=== PATIENT | male | born 1930 | race Hispanic/Latino ===

== ENCOUNTER 2017-06-17 06:35 | Emergency (ER) | payer MEDICARE ==
--- NOTE | 2017-06-17 08:48 | Cat Scan Report ---
CT HEAD WITHOUT CONTRAST: HISTORY: Fall, no appropriate clinical history provided. TECHNIQUE: Sequential CT images without contrast. FINDINGS: Images obtained show bilateral prominence of the sulci and ventricles. There are no abnormal intra- or extra-axial blood or fluid collections. There are no focal masses or evidence of mass effect. The brown white matter differentiation appears within normal limits. Regions of periventricular decreased attenuation are consistent with microangiopathic ischemic disease. The posterior fossa structures including the fourth ventricle, cerebellum, and brainstem appear normal. Severe mucosal thickening is noted throughout all paranasal sinuses. The mastoid air cells are clear. Previous endoscopic sinus surgery changes are suspected. IMPRESSION: Evidence of atrophy and microangiopathic ischemic disease. No acute intracranial process noted. Chronic sinusitis.
--- NOTE | 2017-06-17 08:50 | Cat Scan Report ---
CT SCAN OF THE CERVICAL SPINE: HISTORY: Fall, no additional appropriate clinical history provided. TECHNIQUE: Contiguous 1.25 mm axial images of the cervical spine were obtained. Sagittal and coronal reformatted images. FINDINGS: Osteopenia is evident. Severe degenerative disc disease and facet arthropathy are identified at all levels. Multilevel neural foraminal narrowing is suspected. No displaced fracture, subluxation or bone lesion is appreciated. The dens is intact. The prevertebral soft tissues are normal thickness. IMPRESSION: Osteopenia. Severe multilevel degenerative change. No acute injury is appreciated.
[2017-06-17] MEDS ORDERED: NACL 0.9% 500 ML IR ONE (10:07)
[2017-06-17] MEDS ORDERED: XYLOCAINE 1% 20 mL ONE (10:32)
--- NOTE | 2017-06-17 10:32 | Emergency Department Report ---
HPI - General Chief Complaint: Wound/Laceration Time Seen by Provider: 06/17/17 10:23 - HPI HPI: Room 26 The patient is an 87-year-old male presented with a chief complaint of fall. The patient states this morning at 05:0 after getting out of bed and attempting to pull up his pants he lost his balance and fell forward striking his face on an unknown object. Patient did not lose consciousness but activated his medic alert system. Patient currently only complains of chronic pain from his arthritis but otherwise states he feels fine. Location: Head Duration: [See above] Quality: Currently pain-free Severity: 0/10 Modifying factors: [see above] Context: [see above] Mode of transportation: [not driving] ED Past Medical Hx - Past Medical History Previous Medical History?: Yes Hx Hypertension: Yes Hx Congestive Heart Failure: Yes Additional medical history: hyperlipidemia - Surgical History Past Surgical History?: No Hx Open Heart Surgery: Yes Additional Surgical History: Cardiac valve replacement (family uncertain which valve), AICD, back surgery - Family History Family history: no significant - Social History Smoking Status: Former Smoker (none 40 years) Substance Use Type: Alcohol (rarely) - Medications Home Medications: Home Medications Medication Instructions Recorded Confirmed Last Taken Type Aspirin 81 mg PO DAILY 06/17/17 06/17/17 Unknown History Clopidogrel Bisulfate [Plavix] 75 mg PO DAILY 06/17/17 06/17/17 Unknown History Famotidine 40 mg PO DAILY 06/17/17 06/17/17 06/16/17 History Furosemide [Lasix TAB] 40 mg PO DAILY 06/17/17 06/17/17 Unknown History Gabapentin [Neurontin] 300 mg PO Q8HR 06/17/17 06/17/17 06/16/17 History HYDROcodone/APAP 10-325 [[place] 10 mg PO PRN 06/17/17 06/17/17 06/16/17 History 10-325 mg TAB] Lisinopril [Prinivil] 10 mg PO DAILY 06/17/17 06/17/17 Unknown History Meloxicam 15 mg PO PRN 06/17/17 06/17/17 Unknown History Metoprolol [Lopressor TAB] 25 mg PO DAILY 06/17/17 06/17/17 Unknown History Simvastatin 20 mg PO HS 06/17/17 06/17/17 Unknown History Spironolactone-Hctz 25-25 Tab 25 mg PO DAILY 06/17/17 06/17/17 06/16/17 History traMADol [Ultram] 50 mg PO Q6HR PRN #10 tablet 06/17/17 Unknown Rx ED Review of Systems ROS: Stated complaint: FALL/HEAD LACERATION Other details as noted in HPI Musculoskeletal: back pain, myalgia Skin: other (facial laceration) Neurological: denies: headache Physical Exam - Physical Exam Vital Signs: Vital Signs 06/17/17 06/17/17 06/17/17 06:42 07:34 07:45 Temperature 97.5 F L Pulse Rate 60 61 62 Respiratory 16 19 Rate Blood Pressure 124/61 166/100 O2 Sat by Pulse 96 96 95 Oximetry Physical Exam: GENERAL: The patient is well-developed well-nourished male sitting on stretcher not appear to be in acute distress. Strep blood to the face HEENT: Normocephalic. There is an approximately 3 cm laceration to the mid forehead. Extraocular motions are intact. Patient has moist mucous membranes. NECK: Supple. Trachea midline CHEST/LUNGS: There is no respiratory distress noted. SKIN: There is an approximately 3 cm laceration to the mid forehead with surrounding ecchymosis. There is approximately 1 cm laceration above the upper lip. There is no rash. There is no edema. There is no diaphoresis. NEURO: The patient is awake, alert, and oriented. The patient is cooperative. The patient has normal speech MUSCULOSKELETAL: There is no limited range of motion ED Course Vital Signs 06/17/17 06/17/17 06/17/17 06:42 07:34 07:45 Temperature 97.5 F L Pulse Rate 60 61 62 Respiratory 16 19 Rate Blood Pressure 124/61 166/100 O2 Sat by Pulse 96 96 95 Oximetry - Laceration /Wound Repair Upper Face Wound Location: face Wound Length (cm): 4 Wound's Depth, Shape: superficial Wound Explored: no foreign body removed Betadine Prep?: Yes Anesthesia: 1% Lidocaine, 0.5% Sensorcaine Volume Anesthetic (ccs): 6 Wound Repaired With: sutures Suture Size/Type: 5:0, nylon Number of Sutures: 8 Layer Closure?: No Sterile Dressing Applied?: Yes ED Medical Decision Making - Radiology Data Radiology results: report reviewed (CT head, CT cervical spine), image reviewed (CT head, CT cervical spine) CT HEAD WITHOUT CONTRAST: HISTORY: Fall, no appropriate clinical history provided. TECHNIQUE: Sequential CT images without contrast. FINDINGS: Images obtained show bilateral prominence of the sulci and ventricles. There are no abnormal intra- or extra-axial blood or fluid collections. There are no focal masses or evidence of mass effect. The brown white matter differentiation appears within normal limits. Regions of periventricular decreased attenuation are consistent with microangiopathic ischemic disease. The posterior fossa structures including the fourth ventricle, cerebellum, and brainstem appear normal. Severe mucosal thickening is noted throughout all paranasal sinuses. The mastoid air cells are clear. Previous endoscopic sinus surgery changes are suspected. IMPRESSION: Evidence of atrophy and microangiopathic ischemic disease. No acute intracranial process noted. Chronic sinusitis. Transcribed By: TTR Dictated By: VIVEK SWARTZ JR, MD Electronically Authenticated By: VIVEK SWARTZ JR, MD Signed Date/Time: 06/17/17843 DD/ 2 TD/TT: 06/17/17843 CT SCAN OF THE CERVICAL SPINE: HISTORY: Fall, no additional appropriate clinical history provided. TECHNIQUE: Contiguous 1.25 mm axial images of the cervical spine were obtained. Sagittal and coronal reformatted images. FINDINGS: Osteopenia is evident. Severe degenerative disc disease and facet arthropathy are identified at all levels. Multilevel neural foraminal narrowing is suspected. No displaced fracture, subluxation or bone lesion is appreciated. The dens is intact. The prevertebral soft tissues are normal thickness. IMPRESSION: Osteopenia. Severe multilevel degenerative change. No acute injury is appreciated. Transcribed By: TTR Dictated By: VIVEK SWARTZ JR, MD Electronically Authenticated By: VIVEK SWARTZ JR, MD Signed Date/Time: 06/17/17844 DD/ 3 TD/TT: 06/17/17844 - Differential Diagnosis ICH, closed head injury, facial laceration, cervical fracture Critical care attestation.: If time is entered above; I have spent that time in minutes in the direct care of this critically ill patient, excluding procedure time. ED Disposition Clinical Impression: Facial laceration, Closed head injury Disposition: DC- TO HOME OR SELFCARE Is pt being admited?: No Does the pt Need Aspirin: No Condition: Stable Instructions: Suture Care (ED), Laceration (ED), Minor Head Injury (ED) Additional Instructions: Your sutures need to stay in place for 3-5 days. After that you may return to the emergency department or follow-up with your primary physician to have them removed. Return to the emergency department immediately should you develop worsening symptoms, fever, inability to tolerate food or liquid or any other concerns. Prescriptions: traMADol [Ultram] 50 mg PO Q6HR PRN #10 tablet PRN Reason: Pain Referrals: PRIMARY CARE, [Primary Care Provider] - 3-5 Days Time of Disposition: 11:05
[2017-06-17 10:34] VITALS: BP 167/76
[2017-06-17] MEDS ORDERED: MARCAINE 0.25% INFILTRATI ONE (10:35)
[2017-06-17] MEDS ORDERED: TRIPLE ANTIBIOTIC TP ONE (11:06)
[2017-06-17] MEDS ORDERED: ANTIBIOTIC OINT TP ONE (11:30)
== END 2017-06-17 12:34 | disposition home or self-care (01) ==
LOC: ED 06:35
DX: S01.81XA Laceration without foreign body of other part of head, initial encounter (principal); I11.0 Hypertensive heart disease with heart failure; I50.9 Heart failure, unspecified; E78.5 Hyperlipidemia, unspecified; Z95.810 Presence of automatic (implantable) cardiac defibrillator; Z87.891 Personal history of nicotine dependence; M19.90 Unspecified osteoarthritis, unspecified site; W18.00XA Striking against unspecified object with subsequent fall, initial encounter; Y93.89 Activity, other specified; Y99.8 Other external cause status; Y92.89 Other specified places as the place of occurrence of the external cause
CPT/HCPCS: 70450; 72125; A6250

== ENCOUNTER 2017-06-21 12:00 | Emergency (ER) | payer MEDICARE ==
[2017-06-21 12:20] VITALS: BP 157/64
--- NOTE | 2017-06-21 12:24 | Emergency Department Report ---
ED Recheck HPI - General Chief Complaint: Laceration/Recheck/Suture Stated Complaint: SUTURE REMOVAL Time Seen by Provider: 06/21/17 12:23 Source: patient Mode of arrival: Wheelchair Limitations: No Limitations - History of Present Illness Initial Comments: Family member brought patient in for suture removal to facial area. Patient had suture placed to right forehead and right mustache area. This is placed on 06/17/2017. Patient denies any pain or drainage from site. He said he is here because he was told to return in [address] Valdes to have sutures removed. Patient did not follow-up per her son with his primary care doctor. He did not get a tetanus vaccine when he was here so he'll get 1 prior to discharge. He denies any redness or swelling to suture sites. No complaints today. MD Complaint: suture/staple removal Onset/Timin -: days(s) Initial Visit For: laceration Returns Today for: staple/Stitch removal Symptoms Since Prior Visit: no new symptoms Context: planned re-check Associated Symptoms: none Treatments Prior to Arrival: Given Pain Meds on - Related Data Home Medications Medication Instructions Recorded Confirmed Last Taken Aspirin 81 mg PO DAILY 06/17/17 06/17/17 Unknown Clopidogrel Bisulfate [Plavix] 75 mg PO DAILY 06/17/17 06/17/17 Unknown Famotidine 40 mg PO DAILY 06/17/17 06/17/17 06/16/17 Furosemide [Lasix TAB] 40 mg PO DAILY 06/17/17 06/17/17 Unknown Gabapentin [Neurontin] 300 mg PO Q8HR 06/17/17 06/17/17 06/16/17 HYDROcodone/APAP 10-325 [[place] 10 mg PO PRN 06/17/17 06/17/17 06/16/17 10-325 mg TAB] Lisinopril [Prinivil] 10 mg PO DAILY 06/17/17 06/17/17 Unknown Meloxicam 15 mg PO PRN 06/17/17 06/17/17 Unknown Metoprolol [Lopressor TAB] 25 mg PO DAILY 06/17/17 06/17/17 Unknown Simvastatin 20 mg PO HS 06/17/17 06/17/17 Unknown Spironolactone-Hctz 25-25 Tab 25 mg PO DAILY 06/17/17 06/17/17 06/16/17 Previous Rx's Medication Instructions Recorded Last Taken Type traMADol [Ultram] 50 mg PO Q6HR PRN #10 tablet 06/17/17 Unknown Rx Allergies Allergy/AdvReac Type Severity Reaction Status Date / Time No Known Allergies Allergy Unverified 06/17/17 07:47 ED Review of Systems ROS: Stated complaint: SUTURE REMOVAL Other details as noted in HPI Comment: All other systems reviewed and negative Constitutional: no symptoms reported Respiratory: no symptoms reported Cardiovascular: denies: chest pain, palpitations, dyspnea on exertion, edema, syncope, paroxysmal nocturnal dyspnea Gastrointestinal: denies: abdominal pain, nausea, vomiting, diarrhea Musculoskeletal: denies: back pain, arthralgia, myalgia Skin: other (lacerations 2 to face. Suture removal.) Neurological: denies: headache, weakness, numbness, paresthesias, confusion, abnormal gait, vertigo ED Past Medical Hx - Past Medical History Previous Medical History?: Yes Hx Hypertension: Yes Hx Congestive Heart Failure: Yes Additional medical history: hyperlipidemia - Surgical History Past Surgical History?: Yes Hx Open Heart Surgery: Yes Additional Surgical History: Cardiac valve replacement (family uncertain which valve), AICD, back surgery - Family History Family history: hypertension - Social History Smoking Status: Never Smoker Substance Use Type: None - Medications Home Medications: Home Medications Medication Instructions Recorded Confirmed Last Taken Type Aspirin 81 mg PO DAILY 06/17/17 06/17/17 Unknown History Clopidogrel Bisulfate [Plavix] 75 mg PO DAILY 06/17/17 06/17/17 Unknown History Famotidine 40 mg PO DAILY 06/17/17 06/17/17 06/16/17 History Furosemide [Lasix TAB] 40 mg PO DAILY 06/17/17 06/17/17 Unknown History Gabapentin [Neurontin] 300 mg PO Q8HR 06/17/17 06/17/17 06/16/17 History HYDROcodone/APAP 10-325 [[place] 10 mg PO PRN 06/17/17 06/17/17 06/16/17 History 10-325 mg TAB] Lisinopril [Prinivil] 10 mg PO DAILY 06/17/17 06/17/17 Unknown History Meloxicam 15 mg PO PRN 06/17/17 06/17/17 Unknown History Metoprolol [Lopressor TAB] 25 mg PO DAILY 06/17/17 06/17/17 Unknown History Simvastatin 20 mg PO HS 06/17/17 06/17/17 Unknown History Spironolactone-Hctz 25-25 Tab 25 mg PO DAILY 06/17/17 06/17/17 06/16/17 History traMADol [Ultram] 50 mg PO Q6HR PRN #10 tablet 06/17/17 Unknown Rx ED Physical Exam - General Limitations: No Limitations General appearance: alert, in no apparent distress - Head Head exam: Present: atraumatic, normocephalic, normal inspection - Eye Eye exam: Present: normal appearance, PERRL, EOMI Pupils: Present: normal accommodation - ENT ENT exam: Present: other (patient has facial ecchymotic area from trauma sustained during fall 4 days ago.) - Neck Neck exam: Present: normal inspection, full ROM. Absent: tenderness, meningismus - Respiratory Respiratory exam: Present: normal lung sounds bilaterally. Absent: respiratory distress, chest wall tenderness - Cardiovascular Cardiovascular Exam: Present: regular rate, normal rhythm, normal heart sounds - Extremities Exam Extremities exam: Present: normal inspection, full ROM, normal capillary refill , other (clubbing, cyanosis or edema. +2 pulses to all extremities. No neurovascular compromise). Absent: tenderness, pedal edema, joint swelling, calf tenderness - Neurological Exam Neurological exam: Present: alert, oriented X3 - Psychiatric Psychiatric exam: Present: normal affect, normal mood - Skin Skin exam: Present: warm, dry, ecchymosis (multiple bruises ecchymotic area to facefrom fall 4 days ago. Patient also has 2 laceration with stitches In place. Laceration are well approximated. No redness or drainage. Wound edges are healed.) - Expanded Skin Exam Expanded Type of lesion: Present: laceration ( mustache area and forehead) Distribution of rash: face Description of rash: Absent: tenderness, erythematous, swelling, discharge ED Course Vital Signs 06/21/17 12:16 Temperature 98 F Pulse Rate 65 Respiratory 89 H Rate Blood Pressure 157/64 O2 Sat by Pulse 95 Oximetry - Reevaluation(s) Reevaluation #1: 06/21/17 13:17 Stitches removed from laceration site to the facial area. 5 stitches removed from forehead and 3 stitches removed from right mustache area. Wound is well approximated, no signs of infection. No drainage noted no erythema and nontender to palpate. Patient given Boostrix vaccination because he said his tetanus shot is 10 years. I discussed son that he needs to follow up with patient primary care physician status post fall with multiple bruises into his face. ED Recheck MDM - Medical Decision Making Ed Course: Patient here status post fall injury with laceration to the facial area 4 days ago. He was seen by ED physician and had laceration to forehead and right mustache area repaired. Patient present to the emergency room to have stitches removed. He said he was told by ED physician that he needs to come back within 4 days to have stitches removed from face. Patient has no signs of infection and stitches removal from facial area and wound edges well approximated. Patient here with his son and he is to follow up with primary care physician in 2-3 days status post fall with contusion and bruising to the facial area. I discussed signs of infection that he should look for and patient discharged home in stable condition with his son for emergency room without complaints. Critical care attestation.: If time is entered above; I have spent that time in minutes in the direct care of this critically ill patient, excluding procedure time. ED Disposition Clinical Impression: Encounter for removal of sutures Disposition: DC-01 TO HOME OR SELFCARE Is pt being admited?: No Does the pt Need Aspirin: No Condition: Stable Instructions: Suture Removal (ED), Laceration (ED) Additional Instructions: Please keep affected area to face clean and dry. Please keep affected areas to the face clean and dry. follow-up with primary care physician and 2-3 days status post fall. Referrals: follow-up, primary care physician [Other] - 2-3 Days
[2017-06-21] MEDS ORDERED: BOOSTRIX IM ONE (12:30)
== END 2017-06-21 13:31 | disposition home or self-care (01) ==
LOC: ED 12:00
DX: S01.81XD Laceration without foreign body of other part of head, subsequent encounter (principal); I10 Essential (primary) hypertension; I50.9 Heart failure, unspecified; E78.5 Hyperlipidemia, unspecified; Z79.82 Long term (current) use of aspirin; X58.XXXD Exposure to other specified factors, subsequent encounter
CPT/HCPCS: 90471; 90715

== ENCOUNTER 2018-09-09 08:58 | Inpatient (IN) | payer MEDICARE ==
[~2018-09-09 08:58] MED LIST: NACL 0.9% 1000 ML 1,000 ML IV SCH
[2018-09-09 09:48] LABS: Basophils # (Auto) 0.1 K/mm3 (0.0-0.1); Basophils % (Auto) 0.6 % (0.0-1.8); Eosinophils # (Auto) 0.3 K/mm3 (0.0-0.4); Eosinophils % (Auto) 3.4 % (0.0-4.3); Hematocrit 37.5 % (35.5-45.6); Hemoglobin 12.9 gm/dl (11.8-15.2); Lymphocytes # (Auto) 2.1 K/mm3 (1.2-5.4); Lymphocytes % (Auto) 20.3 % (13.4-35.0); Mean Corpuscular HGB Conc 34 % (32-34); Mean Corpuscular Volume 94 fl (84-94); Monocytes # (Auto) 0.9 K/mm3 (0.0-0.8); Monocytes % (Auto) 8.6 % (0.0-7.3); Platelet Count 123 K/mm3 (140-440); Red Cell Distribution Width 13.3 % (13.2-15.2)
[2018-09-09 10:00] LABS: INR 0.96 (0.87-1.13)
[2018-09-09 10:01] LABS: Partial Thromboplastin Time 33.9 Sec. (24.2-36.6)
[2018-09-09] MEDS: NACL 0.9% 500 ML 500 ML IV SCH ×2 (11:02→15:10)
[2018-09-09] MEDS ORDERED: HEPARIN/NS 5000 UNIT/500ML(CATH LAB) 1,000 ML IR ONE ×2 (11:54→14:50)
[2018-09-09] MEDS ORDERED: ANCEF/STERILE WATER 2 GM/20 ML 2 GM/20 ML SYRINGE IV ONE (12:13)
[2018-09-09] MEDS: ANCEF/STERILE WATER 2 GM/20 ML 2 GM/20 ML SYRINGE IV NR ×2 (12:19→12:25)
[2018-09-09] MEDS: VERSED ONE ×5 (12:25→15:20)
[2018-09-09] MEDS: SUBLIMAZE ONE ×5 (12:25→15:34)
[2018-09-09] MEDS: XYLOCAINE 1%/ EPI 1:100,000 INFILTRATI ONE ×2 (12:28→13:56)
[2018-09-09] MEDS: HEPARIN 10,000 UNITS/10 ML ONE ×2 (12:40→13:25)
[2018-09-09] MEDS ORDERED: SUBLIMAZE ONE ×2 (13:49→16:42)
[2018-09-09] MEDS ORDERED: HEPARIN/NS 5000 UNIT/500ML(CATH LAB) 500 ML IR ONE (13:52)
[2018-09-09] MEDS ORDERED: DILAUDID ONE ×2 (14:31→17:39)
--- NOTE | 2018-09-09 14:31 | Short Stay Summary ---
Short Stay Documentation Date of service: 09/09/18 Narrative H&P: 88 year old man with CLI of the left lower extremity - History Principal diagnosis: CLI left lower extremity H&P: obtained from office - Allergies and Medications Current Medications: Allergies No Known Allergies Allergy (Verified 09/09/18 09:21) Home Medications Medication Instructions Recorded Confirmed Last Taken Type Ascorbic Acid [Vitamin C with Ara 500 mg PO DAILY 09/28/17 09/09/18 09/08/18 History Hips] 500mg Zinc Sulfate 220 mg PO BID 09/28/17 09/09/18 09/08/18 History 220mg Clopidogrel Bisulfate [Plavix] 75 mg PO DAILY #30 tablet 09/29/17 09/09/18 09/08/18 Rx 75mg Famotidine 40 mg PO DAILY #30 tablet 09/29/17 09/09/18 09/08/18 Rx 40mg Furosemide [Lasix TAB] 40 mg PO QDAY #30 tablet 09/29/17 09/09/18 09/08/18 Rx 40mg Gabapentin [Neurontin] 300 mg PO Q8HR #30 capsule 09/29/17 09/09/18 09/08/18 Rx 300mg Lisinopril [Prinivil] 5 mg PO QDAY #30 tablet 09/29/17 09/09/18 09/09/18 06:30 Rx Simvastatin 20 mg PO HS #30 tablet 09/29/17 09/09/18 09/08/18 Rx 20mg Spironolactone [Aldactone] 25 mg PO QDAY #30 tablet 09/29/17 09/09/18 09/08/18 Rx 25mg Apixaban [Eliquis] 5 mg PO Q12H 09/09/18 09/09/18 09/06/18 History 5mg HYDROcodone/APAP 7.5-325 [[place] 1 tab PO DAILY 09/09/18 09/09/18 09/08/18 History 7.5-325 mg TAB] 1 tab Omeg3/Epa/Dha/Fish Oil/Flax/E 1 cap PO DAILY 09/09/18 09/09/18 09/08/18 History [Thera Tears Nutrition Capsule] 1 cap Active Medications Cefazolin Sodium (Ancef/Sterile Water 2 Gm/20 Ml) 2 gm in 20 mls @ 80 mls/hr IV PREOP NR; Protocol Stop: 09/09/18 23:59 Last Admin: 09/09/18 12:25 Dose: 20 mls Documented by: Sodium Chloride (Nacl 0.9% 500 Ml) 500 mls @ 50 mls/hr IV DIRECT CRISTINA Last Admin: 09/09/18 11:02 Dose: 50 mls/hr Documented by: - Physical exam General appearance: no acute distress Lungs: Normal air movement Gastrointestinal: normal - Brief post op/procedure progress note Date of procedure: 09/09/18 Pre-op diagnosis: CLI left lower extremity Post-op diagnosis: same Procedure: LLE revasc of fem-pop with bleeding from right RESEARCH DIRECTOR requiring balloon tamponade Anesthesia: local (w/ conscious sedation) Surgeon: TYLER GOMES Estimated blood loss: minimal Condition: stable - Hospital course Hospital course: Patient had bleeding from right groin which did not respond to 60 min of pres sure ; left wrist angioplasty/balloon tamponade performed of the right groin which initially responded, then had oozing again. Considered surgery to fix arteriotomy, but after consent obtained, bleeding stopped. Fem-stop placed for 30 min and afterwards removed. No further bleeding overnight. VL ultrasound demonstrated very small right RESEARCH DIRECTOR pseudoaneurysm. Will plan on watching over the weekend and then rechecking on thursday. May need pseudoaneuerysm us guided thrombin injection on thursday. My last day with [facility] is 09/10/18. Discusssed with family. Transitioned care to Dr. Wong. Plan discussed with him. - Disposition Disposition: DC-30 STILL A PATIENT Short Stay Discharge Plan Follow up with: MIRTHA PHILIPPE MD [Primary Care Provider] - 7 Days
[2018-09-09] MEDS ORDERED: XYLOCAINE 2% INFILTRATI ONE (14:50)
[2018-09-09] MEDS ORDERED: HEPARIN 10,000 UNITS/10 ML ONE (14:50)
[2018-09-09] MEDS ORDERED: CALAN ONE (14:50)
[2018-09-09] MEDS ORDERED: NACL 0.9% 500 ML 500 ML ONE (14:51)
[2018-09-09] MEDS ORDERED: NITROGLYCERIN SYRINGE 3 ML ONE (14:51)
[2018-09-09] MEDS ORDERED: ZEMURON IV ONE (16:43)
[2018-09-09] MEDS ORDERED: XYLOCAINE MPF 2% ONE (16:43)
[2018-09-09] MEDS ORDERED: AMIDATE IV ONE (16:44)
--- NOTE | 2018-09-09 17:04 | Anesthesia Day of Surgery ---
Anesthesia Day of Surgery - Day of Surgery Patient Examined: Yes Patient H&P Reviewed: Yes Patient is NPO: Yes Beta Blockers: Yes
--- NOTE | 2018-09-09 17:04 | Anesthesia Consultation ---
Anesthesia Consult and Med Hx Date of service: 09/09/18 - Airway Anesthetic Teeth Evaluation: Poor Mental/Hyoid Distance: Adequate Mallampati Class: Class III Intubation Access Assessment: Possibly Difficult - Pulmonary Exam CTA: Yes - Cardiac Exam Cardiac Exam: RRR - Pre-Operative Health Status ASA Pre-Surgery Classification: ASA4, Emergency Proposed Anesthetic Plan: General - Pulmonary Hx Smoking: Yes Home Oxygen Therapy: No - Cardiovascular System Hx Hypertension: Yes Hx Coronary Artery Disease: Yes (s/p CABG 2006) Hx Angina: No (per family, patient has had stable cardiac function for >1 yr) Hx Cardia Arrhythmia: Yes (pA-fib) Hx Pacemaker: Yes Hx Internal Defibrillator: Yes Hx Valvular Heart Disease: Yes (s/p AVR w/ moderate (TAMIE 0.85, mean gradient 15)) Hx Peripheral Vascular Disease: Yes - Central Nervous System Hx Seizures: No CVA: No Hx Psychiatric Problems: No - Gastrointestinal Hx Ulcer: Yes - Endocrine 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 Now scheduled for vascular repair in [place] emergently. Anesthesia consent obtained from family as patient received sedation during prior procedure.
[2018-09-09] MEDS ORDERED: DILAUDID IV ONE (17:40)
[2018-09-09] MEDS ORDERED: SODIUM CHLORIDE FLUSH SYRINGE 10 ML IV PRN (17:50)
[2018-09-09] MEDS ORDERED: ZOFRAN IV PRN (17:50)
[2018-09-09] MEDS ORDERED: DILAUDID IV PRN (17:50)
[2018-09-09] MEDS ORDERED: DHA PO SCH (18:00)
[2018-09-09] MEDS ORDERED: FISH OIL PO SCH (18:00)
[2018-09-09] MEDS ORDERED: [UNRECOGNIZED DRUG - OTHER] PO SCH (18:00)
[2018-09-09] MEDS ORDERED: FLAX PO SCH (18:00)
[2018-09-09] MEDS ORDERED: FAMOTIDINE 40 MG PO SCH (18:00)
[2018-09-09] MEDS ORDERED: EPA PO SCH (18:00)
--- NOTE | 2018-09-09 18:10 | Operative Report ---
Operative Report Operative Report: EXAM: 1. Ultrasound guided access of the right common femoral artery 2. Angiography of the right lower extremity 3. Selection of the abdominal aorta with angiography 4. Selection of the external iliac artery, superficial femoral artery, and popliteal artery with angiography 5. Fluoroscopic guided placement of a 5 mm spider EPD in the left popliteal artery 5. Atherectomy of the left superficial femoral artery and popliteal artery with a Hawkone LX 6. Angioplasty of the left popliteal artery with a 4 mm x 150 mm iNPACT DCB 7. Angioplasty of the left superficial femoral artery with a 5 mm x 150 mm iNPACT DCB (x2), 5 mm x 120 mm iNPACT DCB 8. Capture of the left embolic protection device 9. Attempted closure of the right common femoral artery arteriotomy with a 6 Fr proglide 10. Ultrasound guided access of the left radial artery 11. Third order selection of the right common femoral artery with angiography 12. Balloon tamponade of the right common femoral artery with a 7 mm angioplasty balloon DATE: 09/09/18 [facility] [employer]PERATIONS INTELLIGENCE OFFICER: TYLER GOMES MD INDICATION: Critical limb ischemia of the left lower extremity with non- resolving rest pain MEDICATIONS: Please see nursing report for full details. CONTRAST: 75 mL nonionic contrast PROCEDURE: Risks, benefits, and alternatives were discussed with the family and the patient's son; written informed consent was obtained. The groins were prepped and draped in a sterile fashion. Ultrasound was used to evaluate the right common femoral artery which was severely calcified along its mid and upper portion. The lower portion of the vessel was less calcified. Under direct ultrasound guidance, the lower portion of the right common femoral artery was accessed with a 21-gauge bike or puncture needle. 0.018 inch wire was passed into the aorta. Needle was exchanged for transitional dilator. Wire was exchanged for 0.035 inch wire. Transitional dilator was exchanged for a 5 Vietnamese sheath. Digital subtraction angiography was performed demonstrating an appropriate puncture, slightly above the bifurcation and below the inferior epigastric artery. The right external iliac artery, common femoral artery, proximal profunda femoral artery, and proximal superficial femoral artery were patent. The abdominal aorta was selected and digital subtraction angiography was performed him ensuring patency of the bilateral common iliac arteries, and internal iliac arteries, and external iliac arteries. The left external iliac artery was selected and digital subtraction angiography was performed demonstrating patency of the left common femoral artery, and profunda femoral artery. There is sluggish flow in the superficial femoral artery. The superficial femoral artery had ostial 50% narrowing, and proximal 70% narrowing. The left superficial femoral artery was selected and digital subtraction angiography was performed demonstrating sluggish flow in the mid and distal left superficial femoral artery stent with severe multifocal 99% narrowings with stent. The above the knee popliteal artery had a 99% narrowing. The mid and distal popliteal artery were patent. Below the knee, all of the tibials were occluded at a portion of the vessel. There is extensive collaterals. The best special was the tibioperoneal trunk and the peroneal artery which was patent until the proximal peroneal artery at which point it resulted in many collaterals with distal reconstitution. The patient was heparinized. 5 mm spider embolic protection device was deployed and the left below the knee popliteal artery. Atherectomy was performed of the left superficial femoral artery throughout its course in the popliteal artery. Atherectomy device had to be clean multiple times. After achieving less than 30% residual narrowing, I decided to treat the area with drug-coated angioplasty. 4 mm angioplasty balloon was used to treat the popliteal artery, and sequential 5 mm drug-coated angioplasty balloons were used to treat the superficial femoral artery. There was less than 10% residual narrowing. At this point the embolic protection device was retrieved. I decided to not proceed with further intervention of the tibials at this time. The patient will likely require further intervention, but given the case time, I decided that I had accomplished enough revascularization at this time. Digital subtraction angiography was performed and ensuring unchanged runoff with less than 10% residual narrowing of the left superficial femoral artery and popliteal artery. All wires, catheters, and sheaths were retracted to the right external iliac artery. Sheath was then exchanged for 6 Vietnamese Pro-glide which was used to attempt closely arteriotomy but was unsuccessful. Pressure was then held for 40 minutes but the bleeding continued. I decided the patient would require additional intervention to prevent further bleeding. Left wrist was prepped and draped in a sterile fashion. Ultrasound was used to evaluate the left radial artery which was patent. Under direct ultrasound guidance, the left radial artery was accessed with a 21-gauge micropuncture needle. 0.018 inch wire was passed into the left radial artery. Needle was exchanged for a 4/5 glidesheath slender. Radial cocktail was administered without heparin. The descending thoracic aorta was then selected and the infrarenal abdominal aorta was selected. The right common femoral artery was then selected. Digital subtraction angiography was performed demonstrating no hemodynamically significant narrowing of the right common femoral artery, proximal superficial femoral artery, or profundofemoral artery. There is a suggestion of a irregularity of the distal common femoral artery. 7 mm x 40 mm angioplasty balloon was then used to perform balloon tamponade for 7 minutes at this location. All bleeding had ceased at this point. The balloon was deflated and digital subtraction angiography was performed demonstrating a small pseudoaneurysm at the distal right common femoral artery. I then use a 7 mm x 40 mm angioplasty balloon to perform balloon tamponade again for 10 minutes. Digital subtraction angiography was performed him demonstrating no extravasation or pseudoaneurysm at this time. There is no further bleeding. Pseudoaneurysm was no longer visualized. All wires, catheters, and sheaths were removed and the site was closed with a pressure dressing. Pressure dressing applied to the right groin. After transport from the [employer] laborer table onto the stretcher, there is some bleeding noted from the right groin. Originally, surgical consent for possible operative repair of the artery was obtained, but after evaluation, as it was determined this residual bleeding was likely from a hematoma. Femstop was applied for 30 minutes. Afterwards, no further bleeding encountered. Patient was subsequently admitted to the hospital in the IMCU This was discussed with the family throughout the process. FINDINGS: Please see procedure note above. IMPRESSION: 1. Successful revascularization of the left lower extremity femoral popliteal artery complicated by right femoral artery groin bleeding when pressure was not applied requiring balloon tamponade.
--- NOTE | 2018-09-09 18:17 | Post Operative Note ---
Date of procedure: 09/09/18 Pre-op diagnosis: Left leg critical limb ischemia Post-op diagnosis: same Procedure: 1. Ultrasound guided access of the right common femoral artery 2. Angiography of the right lower extremity 3. Selection of the abdominal aorta with angiography 4. Selection of the external iliac artery, superficial femoral artery, and popliteal artery with angiography 5. Fluoroscopic guided placement of a 5 mm spider EPD in the left popliteal artery 5. Atherectomy of the left superficial femoral artery and popliteal artery with a [employer] LX 6. Angioplasty of the left popliteal artery with a 4 mm x 150 mm iNPACT DCB 7. Angioplasty of the left superficial femoral artery with a 5 mm x 150 mm iNPACT DCB (x2), 5 mm x 120 mm iNPACT DCB 8. Capture of the left embolic protection device 9. Attempted closure of the right common femoral artery arteriotomy with a 6 Fr proglide 10. Ultrasound guided access of the left radial artery 11. Third order selection of the right common femoral artery with angiography 12. Balloon tamponade of the right common femoral artery with a 7 mm angioplasty balloon Anesthesia: local (w/ conscious sedation) Surgeon: TYLER GOMES Estimated blood loss: minimal Condition: stable Disposition: floor
[2018-09-09] MEDS ORDERED: NON-FORMULARY (Simvastatin [Simvastatin] 20 MG) PO SCH (22:00)
[2018-09-09] MEDS ORDERED: NON-FORMULARY (Zinc Sulfate [Zinc Sulfate] 220 MG) PO SCH (22:00)
[2018-09-09] MEDS: SODIUM CHLORIDE FLUSH SYRINGE 10 ML IV SCH (22:00)
[2018-09-09] MEDS: PRAVACHOL PO SCH (23:25)
[2018-09-09] MEDS: NEURONTIN PO SCH (23:25)
[2018-09-09] MEDS: ALDACTONE PO SCH (23:25)
[2018-09-09] MEDS: LASIX PO SCH (23:26)
[2018-09-09] MEDS: COLACE PO SCH (23:26)
[2018-09-09] MEDS: ZESTRIL PO SCH (23:26)
[2018-09-09] MEDS: ZINC SULFATE PO SCH (23:45)
[2018-09-09] MEDS: NORCO 7.5/325 PO SCH (23:45)
[2018-09-10 06:04] LABS: Basophils % (Auto) 0.3 % (0.0-1.8); Eosinophils # (Auto) 0.1 K/mm3 (0.0-0.4); Eosinophils % (Auto) 1.3 % (0.0-4.3); Hemoglobin 11.2 gm/dl (11.8-15.2); Lymphocytes # (Auto) 1.6 K/mm3 (1.2-5.4); Lymphocytes % (Auto) 18.7 % (13.4-35.0); Mean Corpuscular HGB Conc 34 % (32-34); Mean Corpuscular Volume 94 fl (84-94); Monocytes # (Auto) 0.9 K/mm3 (0.0-0.8); Monocytes % (Auto) 10.6 % (0.0-7.3); Platelet Count 125 K/mm3 (140-440); Red Blood Count 3.53 M/mm3 (3.65-5.03); Red Cell Distribution Width 13.3 % (13.2-15.2)
[2018-09-10 06:22] LABS: BUN/Creatinine Ratio 21; Blood Urea Nitrogen 23 mg/dL (9-20); Calcium 8.8 mg/dL (8.4-10.2); Hemolysis Index 5
[2018-09-10] MEDS: NEURONTIN PO SCH ×3 (06:54→22:33)
[2018-09-10] MEDS: LASIX PO SCH (09:18)
[2018-09-10] MEDS: COLACE PO SCH ×2 (09:18→22:32)
[2018-09-10] MEDS: PEPCID PO SCH (09:18)
[2018-09-10] MEDS: ZESTRIL PO SCH (09:19)
[2018-09-10] MEDS: VITAMIN C PO SCH (09:19)
[2018-09-10] MEDS ORDERED: HYDROCODONE BITARTRATE 20 MG PO SCH (11:45)
--- NOTE | 2018-09-10 11:52 | Vascular Lab Report ---
PROCEDURE: VL ARTERIAL DUPLEX LE RT TECHNIQUE: Duplex Doppler ultrasound of the right groin. HISTORY: hematoma right groin, check for pseudo COMPARISON: None FINDINGS: There is a pseudoaneurysm in the right groin at the In the area of common femoral artery bifurcation. It measures about 2 cm. The neck is identified neo uring 8.2 mm in length and 4.1 mm width. IMPRESSION: Study confirms a right pseudoaneurysm. This document is electronically signed by Lorrie Lucas MD., September 10 2018 11:50:29 AM ET
--- NOTE | 2018-09-10 12:03 | Progress Note ---
Subjective Date of service: 09/10/18 Principal diagnosis: CLI left lower extremity Objective - Constitutional Vitals: Vital Signs - 12hr 09/10/18 09/10/18 09/10/18 00:34 02:34 04:00 Temperature 96.6 F L Pulse Rate Respiratory 14 14 Rate Blood Pressure O2 Sat by Pulse 98 98 Oximetry 09/10/18 09/10/18 09/10/18 04:34 06:00 09:19 Temperature Pulse Rate 64 Respiratory 14 14 Rate Blood Pressure 138/48 O2 Sat by Pulse 98 98 Oximetry - Labs CBC & Chem 7: 09/10/18 04:55 09/10/18 04:55 Labs: Abnormal lab results 09/09/18 09/10/18 09/10/18 Range/Units 20:46 04:55 04:55 RBC 3.53 L (3.65-5.03) M/mm3 Hgb 11.2 L (11.8-15.2) gm/dl Hct 33.0 L (35.5-45.6) % Plt Count 125 L (140-440) K/mm3 [place] % (Auto) 10.6 H (0.0-7.3) % [place] # 0.9 H (0.0-0.8) K/mm3 BUN 23 H (9-20) mg/dL Glucose 110 H (75-100) mg/dL POC Glucose 110 H (70-105) Medications & Allergies - Medications Allergies/Adverse Reactions: Allergies No Known Allergies Allergy (Verified 09/09/18 09:21) Home Medications: Home Medications Medication Instructions Recorded Confirmed Last Taken Type Ascorbic Acid [Vitamin C with Ara 500 mg PO DAILY 09/28/17 09/09/18 09/08/18 History Hips] 500mg Zinc Sulfate 220 mg PO BID 09/28/17 09/09/18 09/08/18 History 220mg Clopidogrel Bisulfate [Plavix] 75 mg PO DAILY #30 tablet 09/29/17 09/09/18 09/08/18 Rx 75mg Famotidine 40 mg PO DAILY #30 tablet 09/29/17 09/09/18 09/08/18 Rx 40mg Furosemide [Lasix TAB] 40 mg PO QDAY #30 tablet 09/29/17 09/09/18 09/08/18 Rx 40mg Gabapentin [Neurontin] 300 mg PO Q8HR #30 capsule 09/29/17 09/09/18 09/08/18 Rx 300mg Lisinopril [Prinivil] 5 mg PO QDAY #30 tablet 09/29/17 09/09/18 09/09/18 06:30 Rx Simvastatin 20 mg PO HS #30 tablet 09/29/17 09/09/18 09/08/18 Rx 20mg Spironolactone [Aldactone] 25 mg PO QDAY #30 tablet 09/29/17 09/09/18 09/08/18 Rx 25mg Apixaban [Eliquis] 5 mg PO Q12H 09/09/18 09/09/18 09/06/18 History 5mg HYDROcodone/APAP 7.5-325 [[place] 1 tab PO DAILY 09/09/18 09/09/18 09/08/18 History 7.5-325 mg TAB] 1 tab Hydrocodone Bitartrate [[place] 20 mg PO DAILY 09/09/18 09/09/18 09/08/18 History ER TAB] 1 tab Omeg3/Epa/Dha/Fish Oil/Flax/E 1 cap PO DAILY 09/09/18 09/09/18 09/08/18 History [Thera Tears Nutrition Capsule] 1 cap Active Medications: Generic Name Dose Route Start Last Admin Trade Name Adonayq PRN Reason Stop Dose Admin Acetaminophen 650 mg 09/09/18 17:50 Tylenol PO Q4H PRN Pain MILD(1-3)/Fever >100.5/SEYMOUR Acetaminophen/Hydrocodone Bitart 1 each 09/09/18 22:00 09/09/18 23:45 [place] 7.5/325 PO 1 each BID CRISTINA Administration Ascorbic Acid 500 mg 09/10/18 10:00 09/10/18 09:19 Vitamin C PO 500 mg DAILY CRISTINA Administration Clopidogrel Bisulfate 75 mg 09/10/18 14:00 Plavix PO DAILY CRISTINA Docusate Sodium 100 mg 09/09/18 22:00 09/10/18 09:18 Colace PO 100 mg BID CRISTINA Administration Famotidine 20 mg 09/10/18 10:00 09/10/18 09:18 Pepcid PO 20 mg QDAY CRISTINA Administration Furosemide 40 mg 09/09/18 22:00 09/10/18 09:18 Lasix PO 40 mg QDAY CRISTINA Administration Gabapentin 300 mg 09/09/18 22:00 09/10/18 06:54 Neurontin PO 300 mg Q8HR CRISTINA Administration Hydromorphone HCl 1 mg 09/09/18 17:50 09/10/18 02:19 Dilaudid IV 1 mg Q2H PRN Administration Pain, Moderate (4-6) Sodium Chloride 500 mls @ 50 mls/hr 09/09/18 10:00 09/09/18 15:10 Nacl 0.9% 500 Ml IV 50 mls/hr DIRECT CRISTINA Administration Lisinopril 5 mg 09/09/18 22:00 09/10/18 09:19 Zestril PO 5 mg QDAY CRISTINA Administration Ondansetron HCl 4 mg 09/09/18 17:50 Zofran IV Q8H PRN Nausea Pravastatin Sodium 40 mg 09/09/18 22:00 09/09/18 23:25 Pravachol PO 40 mg QHS CRISTINA Administration Sodium Chloride 10 ml 09/09/18 22:00 09/09/18 22:00 Sodium Chloride Flush Syringe 10 Ml IV 10 ml BID CRISTINA Administration Sodium Chloride 10 ml 09/09/18 17:50 Sodium Chloride Flush Syringe 10 Ml IV PRN PRN LINE FLUSH Spironolactone 25 mg 09/09/18 22:00 09/09/18 23:25 Aldactone PO 25 mg QDAY CRISTINA Administration Zinc Sulfate 220 mg 09/09/18 22:00 09/09/18 23:45 Zinc Sulfate PO 220 mg BID CRISTINA Administration
--- NOTE | 2018-09-10 12:18 | Progress Note ---
Assessment and Plan 88 year old man with CLI of the left lower extremity with severe rest pain and nonhealing ulcer s/p right femoral approach intervention with revascularization of the left femoral-popliteal artery. Procedure complicated by right femoral arterial bleeding requiring manual compression and balloon tamponade from a left radial approach. Doing well today. Rest pain resolved. Feels good. Both legs warm. Motor function intact. Sensation at baseline. VL demonstrates small right [employer] pseudo which was 1.5 cm. Given elderly state, recommend pressure dressing until thursday with reassessment with arterial doppler. Based on that, determination about discharge with followup versus US guided pseudo injection can be determined. This is my last day with [facility]. I discussed this with the patient and his son. I transitioned care to Dr. Wong who I discussed the situation with and agreed with the above plan. He will be assuming care of the patient. Subjective Date of service: 09/10/18 Principal diagnosis: CLI left lower extremity Interval history: Doing better. Right groin feeels better. Left leg rest pain has resolved with hyperemia of the leg noted compatible with reperfusion. Can move both feet. Sensation at baseline. Left wrist has radial pulse. No large hematoma of right groin. Objective - Constitutional Vitals: Vital Signs - 12hr 09/10/18 09/10/18 09/10/18 00:34 02:34 04:00 Temperature 96.6 F L Pulse Rate Respiratory 14 14 Rate Blood Pressure O2 Sat by Pulse 98 98 Oximetry 09/10/18 09/10/18 09/10/18 04:34 06:00 09:19 Temperature Pulse Rate 64 Respiratory 14 14 Rate Blood Pressure 138/48 O2 Sat by Pulse 98 98 Oximetry General appearance: Present: no acute distress - EENT Eyes: EOM intact ENT: hearing intact - Respiratory Respiratory effort: normal Extremities: abnormal (see subjective) - Gastrointestinal General gastrointestinal: Present: soft - Psychiatric Psychiatric: appropriate mood/affect, cooperative - Labs CBC & Chem 7: 09/10/18 04:55 09/10/18 04:55 Labs: Abnormal lab results 09/09/18 09/10/18 09/10/18 Range/Units 20:46 04:55 04:55 RBC 3.53 L (3.65-5.03) M/mm3 Hgb 11.2 L (11.8-15.2) gm/dl Hct 33.0 L (35.5-45.6) % Plt Count 125 L (140-440) K/mm3 [place] % (Auto) 10.6 H (0.0-7.3) % [place] # 0.9 H (0.0-0.8) K/mm3 BUN 23 H (9-20) mg/dL Glucose 110 H (75-100) mg/dL POC Glucose 110 H (70-105) Medications & Allergies - Medications Allergies/Adverse Reactions: Allergies No Known Allergies Allergy (Verified 09/09/18 09:21) Home Medications: Home Medications Medication Instructions Recorded Confirmed Last Taken Type Ascorbic Acid [Vitamin C with Ara 500 mg PO DAILY 09/28/17 09/09/18 09/08/18 History Hips] 500mg Zinc Sulfate 220 mg PO BID 09/28/17 09/09/18 09/08/18 History 220mg Clopidogrel Bisulfate [Plavix] 75 mg PO DAILY #30 tablet 09/29/17 09/09/18 09/08/18 Rx 75mg Famotidine 40 mg PO DAILY #30 tablet 09/29/17 09/09/18 09/08/18 Rx 40mg Furosemide [Lasix TAB] 40 mg PO QDAY #30 tablet 09/29/17 09/09/18 09/08/18 Rx 40mg Gabapentin [Neurontin] 300 mg PO Q8HR #30 capsule 09/29/17 09/09/18 09/08/18 Rx 300mg Lisinopril [Prinivil] 5 mg PO QDAY #30 tablet 09/29/17 09/09/18 09/09/18 06:30 Rx Simvastatin 20 mg PO HS #30 tablet 09/29/17 09/09/18 09/08/18 Rx 20mg Spironolactone [Aldactone] 25 mg PO QDAY #30 tablet 09/29/17 09/09/18 09/08/18 Rx 25mg Apixaban [Eliquis] 5 mg PO Q12H 09/09/18 09/09/18 09/06/18 History 5mg HYDROcodone/APAP 7.5-325 [[place] 1 tab PO DAILY 09/09/18 09/09/18 09/08/18 History 7.5-325 mg TAB] 1 tab Hydrocodone Bitartrate [Hysingla 20 mg PO DAILY 0209/09/18 09/08/18 History ER TAB] 1 tab Omeg3/Epa/Dha/Fish Oil/Flax/E 1 cap PO DAILY 09/09/18 09/09/18 09/08/18 History [Thera Tears Nutrition Capsule] 1 cap Active Medications: Generic Name Dose Route Start Last Admin Trade Name Freq PRN Reason Stop Dose Admin Acetaminophen 650 mg 09/09/18 17:50 Tylenol PO Q4H PRN Pain MILD(1-3)/Fever >100.5/SEYMOUR Acetaminophen/Hydrocodone Bitart 1 each 09/09/18 22:00 09/09/18 23:45 [place] 7.5/325 PO 1 each BID CRISTINA Administration Ascorbic Acid 500 mg 09/10/18 10:00 09/10/18 09:19 Vitamin C PO 500 mg DAILY CRISTINA Administration Clopidogrel Bisulfate 75 mg 09/10/18 14:00 Plavix PO DAILY CRISTINA Docusate Sodium 100 mg 09/09/18 22:00 09/10/18 09:18 Colace PO 100 mg BID CRISTINA Administration Famotidine 20 mg 09/10/18 10:00 09/10/18 09:18 Pepcid PO 20 mg QDAY CRISTINA Administration Furosemide 40 mg 09/09/18 22:00 09/10/18 09:18 Lasix PO 40 mg QDAY CRISTINA Administration Gabapentin 300 mg 09/09/18 22:00 09/10/18 06:54 Neurontin PO 300 mg Q8HR CRISTINA Administration Hydromorphone HCl 1 mg 09/09/18 17:50 09/10/18 02:19 Dilaudid IV 1 mg Q2H PRN Administration Pain, Moderate (4-6) Sodium Chloride 500 mls @ 50 mls/hr 09/09/18 10:00 09/09/18 15:10 Nacl 0.9% 500 Ml IV 50 mls/hr DIRECT CRISTINA Administration Lisinopril 5 mg 09/09/18 22:00 09/10/18 09:19 Zestril PO 5 mg QDAY CRISTINA Administration Ondansetron HCl 4 mg 09/09/18 17:50 Zofran IV Q8H PRN Nausea Pravastatin Sodium 40 mg 09/09/18 22:00 09/09/18 23:25 Pravachol PO 40 mg QHS CRISTINA Administration Sodium Chloride 10 ml 09/09/18 22:00 09/09/18 22:00 Sodium Chloride Flush Syringe 10 Ml IV 10 ml BID CRISTINA Administration Sodium Chloride 10 ml 09/09/18 17:50 Sodium Chloride Flush Syringe 10 Ml IV PRN PRN LINE FLUSH Spironolactone 25 mg 09/09/18 22:00 09/09/18 23:25 Aldactone PO 25 mg QDAY CRISTINA Administration Zinc Sulfate 220 mg 09/09/18 22:00 09/09/18 23:45 Zinc Sulfate PO 220 mg BID CRISTINA Administration
[2018-09-10] MEDS: PLAVIX PO SCH ×2 (20:45)
[2018-09-10] MEDS: NORCO 7.5/325 PO SCH ×2 (20:46→22:32)
[2018-09-10] MEDS: PRAVACHOL PO SCH (22:33)
[2018-09-10] MEDS: ZINC SULFATE PO SCH (22:33)
[2018-09-10] MEDS: SODIUM CHLORIDE FLUSH SYRINGE 10 ML IV SCH (22:33)
[2018-09-11] MEDS: NEURONTIN PO SCH ×3 (06:56→21:25)
[2018-09-11] MEDS: ZESTRIL PO SCH (11:32)
[2018-09-11] MEDS: ALDACTONE PO SCH ×2 (11:34→11:55)
[2018-09-11] MEDS: NORCO 7.5/325 PO SCH ×2 (11:34→21:21)
[2018-09-11] MEDS: PEPCID PO SCH (11:36)
[2018-09-11] MEDS: VITAMIN C PO SCH (11:36)
--- NOTE | 2018-09-11 11:44 | Progress Note ---
Assessment and Plan small PSA of [facility] femoral access site, s/p left LE revasc. legs well perfused d/c planning Thursday Subjective Date of service: 09/11/18 Principal diagnosis: CLI left lower extremity Interval history: c/o being uncomfortable in hospital bed. Objective - Exam Narrative Exam: right groin pressure dressing in place. No signs of bleeding. - Constitutional Vitals: Vital Signs - 12hr 09/11/18 09/11/18 09/11/18 00:00 04:03 04:10 Temperature 98.2 F 97.8 F Pulse Rate [ 59 L 55 L None] Respiratory 15 15 16 Rate Blood Pressure 121/40 131/50 O2 Sat by Pulse 92 97 97 Oximetry 09/11/18 11:32 Temperature Pulse Rate [ None] Respiratory Rate Blood Pressure 144/44 O2 Sat by Pulse Oximetry - Labs CBC & Chem 7: 09/10/18 04:55 09/10/18 04:55 Labs: Abnormal lab results 09/10/18 Range/Units 12:22 POC Glucose 129 H (70-105) Medications & Allergies - Medications Allergies/Adverse Reactions: Allergies No Known Allergies Allergy (Verified 09/09/18 09:21) Home Medications: Home Medications Medication Instructions Recorded Confirmed Last Taken Type Ascorbic Acid [Vitamin C with Ara 500 mg PO DAILY 09/28/17 09/09/18 09/08/18 History Hips] 500mg Zinc Sulfate 220 mg PO BID 09/28/17 09/09/18 09/08/18 History 220mg Clopidogrel Bisulfate [Plavix] 75 mg PO DAILY #30 tablet 09/29/17 09/09/18 09/08/18 Rx 75mg Famotidine 40 mg PO DAILY #30 tablet 09/29/17 09/09/18 09/08/18 Rx 40mg Furosemide [Lasix TAB] 40 mg PO QDAY #30 tablet 09/29/17 09/09/18 09/08/18 Rx 40mg Gabapentin [Neurontin] 300 mg PO Q8HR #30 capsule 09/29/17 09/09/18 09/08/18 Rx 300mg Lisinopril [Prinivil] 5 mg PO QDAY #30 tablet 09/29/17 09/09/18 09/09/18 06:30 Rx Simvastatin 20 mg PO HS #30 tablet 09/29/17 09/09/18 09/08/18 Rx 20mg Spironolactone [Aldactone] 25 mg PO QDAY #30 tablet 09/29/17 09/09/18 09/08/18 Rx 25mg Apixaban [Eliquis] 5 mg PO Q12H 09/09/18 09/09/18 09/06/18 History 5mg HYDROcodone/APAP 7.5-325 [[place] 1 tab PO DAILY 09/09/18 09/09/18 09/08/18 History 7.5-325 mg TAB] 1 tab Hydrocodone Bitartrate [Hysingla 20 mg PO DAILY 09/09/18 09/09/18 09/08/18 History ER TAB] 1 tab Omeg3/Epa/Dha/Fish Oil/Flax/E 1 cap PO DAILY 09/09/18 09/09/18 09/08/18 History [Thera Tears Nutrition Capsule] 1 cap Active Medications: Generic Name Dose Route Start Last Admin Trade Name Freq PRN Reason Stop Dose Admin Acetaminophen 650 mg 09/09/18 17:50 Tylenol PO Q4H PRN Pain MILD(1-3)/Fever >100.5/SEYMOUR Acetaminophen/Hydrocodone Bitart 1 each 09/09/18 22:00 09/11/18 11:34 [place] 7.5/325 PO 1 each BID CRISTINA Administration Ascorbic Acid 500 mg 09/10/18 10:00 09/11/18 11:36 Vitamin C PO 500 mg DAILY CRISTINA Administration Clopidogrel Bisulfate 75 mg 09/10/18 14:00 09/10/18 20:45 Plavix PO 75 mg DAILY CRISTINA Administration Docusate Sodium 100 mg 09/09/18 22:00 09/10/18 22:32 Colace PO 100 mg BID CRISTINA Administration Famotidine 20 mg 09/10/18 10:00 09/11/18 11:36 Pepcid PO 20 mg QDAY CRISTINA Administration Furosemide 40 mg 09/09/18 22:00 09/10/18 09:18 Lasix PO 40 mg QDAY CRISTINA Administration Gabapentin 300 mg 09/09/18 22:00 09/11/18 06:56 Neurontin PO Not Given Q8HR CRISTINA Hydromorphone HCl 1 mg 09/09/18 17:50 09/10/18 02:19 Dilaudid IV 1 mg Q2H PRN Administration Pain, Moderate (4-6) Sodium Chloride 500 mls @ 50 mls/hr 09/09/18 10:00 09/09/18 15:10 Nacl 0.9% 500 Ml IV 50 mls/hr DIRECT CRISTINA Administration Lisinopril 5 mg 09/09/18 22:00 09/11/18 11:32 Zestril PO 5 mg QDAY CRISTINA Administration Ondansetron HCl 4 mg 09/09/18 17:50 Zofran IV Q8H PRN Nausea Pravastatin Sodium 40 mg 09/09/18 22:00 09/10/18 22:33 Pravachol PO 40 mg QHS CRISTINA Administration Sodium Chloride 10 ml 09/09/18 22:00 09/10/18 22:33 Sodium Chloride Flush Syringe 10 Ml IV 10 ml BID CRISTINA Administration Sodium Chloride 10 ml 09/09/18 17:50 Sodium Chloride Flush Syringe 10 Ml IV PRN PRN LINE FLUSH Spironolactone 25 mg 09/09/18 22:00 09/11/18 11:34 Aldactone PO 25 mg QDAY CRISTINA Administration Zinc Sulfate 220 mg 09/09/18 22:00 09/10/18 22:33 Zinc Sulfate PO 220 mg BID CRISTINA Administration
[2018-09-11] MEDS: LASIX PO SCH (11:54)
[2018-09-11] MEDS: COLACE PO SCH ×2 (11:55→21:25)
[2018-09-11] MEDS: SODIUM CHLORIDE FLUSH SYRINGE 10 ML IV SCH ×3 (11:56→21:25)
[2018-09-11] MEDS: PLAVIX PO SCH (11:57)
[2018-09-11] MEDS: ZINC SULFATE PO SCH (21:21)
[2018-09-11] MEDS: AMBIEN PO PRN (21:25)
[2018-09-11] MEDS: PRAVACHOL PO SCH (21:25)
[2018-09-12] MEDS: TYLENOL PO PRN (05:56)
[2018-09-12] MEDS: NEURONTIN PO SCH ×3 (05:56→22:04)
--- NOTE | 2018-09-12 10:42 | Progress Note ---
Assessment and Plan small PSA of [facility] femoral access site, s/p left LE revasc. legs well perfused will get arterial duplex in am to follow PSA, if ok d/c planning Thursday Subjective Date of service: 09/12/18 Principal diagnosis: CLI left lower extremity Interval history: doing ok Objective - Exam Narrative Exam: right groin pressure dressing in place. No signs of bleeding. legs well perfused - Constitutional Vitals: Vital Signs - 12hr 09/12/18 09/12/18 09/12/18 00:00 01:22 04:00 Temperature 98.2 F 98.2 F Pulse Rate [ 63 54 L From Monitor] Respiratory 18 16 Rate O2 Sat by Pulse 94 95 Oximetry - Labs CBC & Chem 7: 09/10/18 04:55 09/10/18 04:55 Medications & Allergies - Medications Allergies/Adverse Reactions: Allergies No Known Allergies Allergy (Verified 09/09/18 09:21) Home Medications: Home Medications Medication Instructions Recorded Confirmed Last Taken Type Ascorbic Acid [Vitamin C with Ara 500 mg PO DAILY 09/28/17 09/09/18 09/08/18 History Hips] 500mg Zinc Sulfate 220 mg PO BID 09/28/17 09/09/18 09/08/18 History 220mg Clopidogrel Bisulfate [Plavix] 75 mg PO DAILY #30 tablet 09/29/17 09/09/18 09/08/18 Rx 75mg Famotidine 40 mg PO DAILY #30 tablet 09/29/17 09/09/18 09/08/18 Rx 40mg Furosemide [Lasix TAB] 40 mg PO QDAY #30 tablet 09/29/17 09/09/18 09/08/18 Rx 40mg Gabapentin [Neurontin] 300 mg PO Q8HR #30 capsule 09/29/17 09/09/18 09/08/18 Rx 300mg Lisinopril [Prinivil] 5 mg PO QDAY #30 tablet 09/29/17 09/09/18 09/09/18 06:30 Rx Simvastatin 20 mg PO HS #30 tablet 09/29/17 09/09/18 09/08/18 Rx 20mg Spironolactone [Aldactone] 25 mg PO QDAY #30 tablet 09/29/17 09/09/18 09/08/18 Rx 25mg Apixaban [Eliquis] 5 mg PO Q12H 09/09/18 09/09/18 09/06/18 History 5mg HYDROcodone/APAP 7.5-325 [[place] 1 tab PO DAILY 09/09/18 09/09/18 09/08/18 History 7.5-325 mg TAB] 1 tab Hydrocodone Bitartrate [Hysingla 20 mg PO DAILY 09/09/18 09/09/18 09/08/18 History ER TAB] 1 tab Omeg3/Epa/Dha/Fish Oil/Flax/E 1 cap PO DAILY 09/09/18 09/09/18 09/08/18 History [Thera Tears Nutrition Capsule] 1 cap Active Medications: Generic Name Dose Route Start Last Admin Trade Name Freq PRN Reason Stop Dose Admin Acetaminophen 650 mg 09/09/18 17:50 09/12/18 05:56 Tylenol PO 650 mg Q4H PRN Administration Pain MILD(1-3)/Fever >100.5/[place] Acetaminophen/Hydrocodone Bitart 1 each 09/09/18 22:00 09/11/18 21:21 [place] 7.5/325 PO 1 each BID [facility] Administration Ascorbic Acid 500 mg 09/10/18 10:00 09/11/18 11:36 Vitamin C PO 500 mg DAILY [facility] Administration Clopidogrel Bisulfate 75 mg 09/10/18 14:00 09/11/18 11:57 Plavix PO 75 mg DAILY [facility] Administration Docusate Sodium 100 mg 09/09/18 22:00 09/11/18 21:25 Colace PO 100 mg BID [facility] Administration Famotidine 20 mg 09/10/18 10:00 09/11/18 11:36 Pepcid PO 20 mg QDAY [facility] Administration Furosemide 40 mg 09/09/18 22:00 09/11/18 11:54 Lasix PO 40 mg QDAY [facility] Administration Gabapentin 300 mg 09/09/18 22:00 09/12/18 05:56 Neurontin PO 300 mg Q8HR [facility] Administration Hydromorphone HCl 1 mg 09/09/18 17:50 09/10/18 02:19 Dilaudid IV 1 mg Q2H PRN Administration Pain, Moderate (4-6) Sodium Chloride 500 mls @ 50 mls/hr 09/09/18 10:00 09/09/18 15:10 Nacl 0.9% 500 Ml IV 50 mls/hr DIRECT [facility] Administration Lisinopril 5 mg 09/09/18 22:00 09/11/18 11:32 Zestril PO 5 mg QDAY [facility] Administration Ondansetron HCl 4 mg 09/09/18 17:50 Zofran IV Q8H PRN Nausea Pravastatin Sodium 40 mg 09/09/18 22:00 09/11/18 21:25 Pravachol PO 40 mg QHS [facility] Administration Sodium Chloride 10 ml 09/09/18 22:00 09/11/18 21:25 Sodium Chloride Flush Syringe 10 Ml IV 10 ml BID [facility] Administration Sodium Chloride 10 ml 09/09/18 17:50 Sodium Chloride Flush Syringe 10 Ml IV PRN PRN LINE FLUSH Spironolactone 25 mg 09/09/18 22:00 09/11/18 11:55 Aldactone PO 25 mg QDAY [facility] Administration Zinc Sulfate 220 mg 09/09/18 22:00 09/11/18 21:21 Zinc Sulfate PO 220 mg BID [facility] Administration Zolpidem Tartrate 5 mg 09/11/18 20:45 09/11/18 21:25 Ambien PO 5 mg QHS PRN Administration Sleep
[2018-09-12] MEDS: ZINC SULFATE PO SCH ×2 (11:01→11:11)
[2018-09-12] MEDS: ALDACTONE PO SCH (11:02)
[2018-09-12] MEDS: COLACE PO SCH ×2 (11:03→22:04)
[2018-09-12] MEDS: LASIX PO SCH (11:03)
[2018-09-12] MEDS: PLAVIX PO SCH (11:04)
[2018-09-12] MEDS: SODIUM CHLORIDE FLUSH SYRINGE 10 ML IV SCH ×2 (11:04→22:05)
[2018-09-12] MEDS: PEPCID PO SCH (11:04)
[2018-09-12] MEDS: VITAMIN C PO SCH (11:05)
[2018-09-12] MEDS: ZESTRIL PO SCH (11:05)
[2018-09-12] MEDS: NORCO 7.5/325 PO SCH ×2 (11:09→22:04)
[2018-09-12] MEDS ORDERED: D50W (25GM) Syringe IV PRN (22:01)
[2018-09-12] MEDS: AMBIEN PO PRN (22:04)
[2018-09-12] MEDS: PRAVACHOL PO SCH (22:04)
[2018-09-12] MEDS ORDERED: D5W/0.45% NACL/KCL 20 MEQ 20 MEQ/1,000 ML BAG IV SCH (23:00)
[2018-09-12] MEDS ORDERED: KCL 10MEQ/100ML 10 MEQ/100 ML BAG IV SCH ×2 (23:00)
[2018-09-12] MEDS ORDERED: HumuLIN R 100 UNITS in NACL 0.9% 99 ML IV SCH (23:00)
[2018-09-12 23:46] LABS: Calcium 8.4 mg/dL (8.4-10.2)
[2018-09-13] MEDS: ZINC SULFATE PO SCH ×3 (00:02→21:18)
[2018-09-13 01:39] LABS: Calcium 8.4 mg/dL (8.4-10.2)
[2018-09-13] MEDS: TYLENOL PO PRN (04:40)
[2018-09-13] MEDS: NEURONTIN PO SCH ×3 (06:52→21:20)
[2018-09-13 07:56] LABS: BUN/Creatinine Ratio 17; Blood Urea Nitrogen 19 mg/dL (9-20); Calcium 8.5 mg/dL (8.4-10.2); Hemolysis Index 10
--- NOTE | 2018-09-13 09:33 | Vascular Lab Report ---
PROCEDURE: VL ARTERIAL DUPLEX LE RT TECHNIQUE: Right lower extremity arterial duplex ultrasound. HISTORY: recheck pseudo right groin COMPARISONS: Right groin arterial ultrasound September 10, 2018. 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 Overall diameter of the aneurysm is 2.8 x 1.3 cm. IMPRESSION: * Slightly larger right groin pseudoaneurysm.. This document is electronically signed by Jeffy Villanueva MD., September 13 2018 09:31:21 AM ET
--- NOTE | 2018-09-13 10:55 | Consultation ---
History of Present Illness - Reason for Consult Consult date: 09/13/18 Medical management of hypertension - History of Present Illness Patient is a 88 yo man with a history of PVD s/p multiple angioplasties, hypertension, CAD s/p CABG 2003, s/p ICD placement 2014, bioprosthetic AVR 2010, OA, and dyslipidemia who presented to Outpatient surgery center with Left foot numbness, burning and pain on 09/09/2018 and underwent Left leg angioplasty. He was admitted by Vascular surgery on the 09/09/18. Hospitalist was notified today of the Consult for medical management of hypertension. Patient is on his way to another surgery per Vascular Surgery. Past Medical History: acute NC, hypertension, PVD, other (duodenal ulcer, sepsis (Jul 2017), osteoarthritis, neuropathy, venous insufficiency, spinal stenosis, ) Past Surgical History: valve replacement, CABG, Other (AICD placement, gallbladder removal) Social history: no significant social history Family history: no significant family history ROS: Constitutional: denies: fever ENT: denies: throat or neck pain Respiratory: denies: cough, shortness of breath Cardiovascular: denies: chest pain Endocrine: denies unexplained weight loss or gain Gastrointestinal: denies: abdominal pain, nausea Genitourinary: denies: dysuria Rectal: denies no incontinence, no bleeding, no itching, no discharge Musculoskeletal: abnormal left leg with weakness Skin: bilateral venous stasis Neurological: denies: headache Hematological/Lymphatic: denies: easy bleeding or easy bruising Allergic/Immunologic: no urticaria, no allergic rhinitis, no anaphylaxis Psych: denies sadness or hopelessness, SI/HI Medications and Allergies Allergies Allergy/AdvReac Type Severity Reaction Status Date / Time No Known Allergies Allergy Verified 09/09/18 09:21 Home Medications Medication Instructions Recorded Confirmed Last Taken Type Ascorbic Acid [Vitamin C with Ara 500 mg PO DAILY 09/28/17 09/09/18 09/08/18 History Hips] 500mg Zinc Sulfate 220 mg PO BID 09/28/17 09/09/18 09/08/18 History 220mg Clopidogrel Bisulfate [Plavix] 75 mg PO DAILY #30 tablet 09/29/17 09/09/18 09/08/18 Rx 75mg Famotidine 40 mg PO DAILY #30 tablet 09/29/17 09/09/18 09/08/18 Rx 40mg Furosemide [Lasix TAB] 40 mg PO QDAY #30 tablet 09/29/17 09/09/18 09/08/18 Rx 40mg Gabapentin [Neurontin] 300 mg PO Q8HR #30 capsule 09/29/17 09/09/18 09/08/18 Rx 300mg Lisinopril [Prinivil] 5 mg PO QDAY #30 tablet 09/29/17 09/09/18 09/09/18 06:30 Rx Simvastatin 20 mg PO HS #30 tablet 09/29/17 09/09/18 09/08/18 Rx 20mg Spironolactone [Aldactone] 25 mg PO QDAY #30 tablet 09/29/17 09/09/18 09/08/18 Rx 25mg Apixaban [Eliquis] 5 mg PO Q12H 09/09/18 09/09/18 09/06/18 History 5mg HYDROcodone/APAP 7.5-325 [[place] 1 tab PO DAILY 09/09/18 09/09/18 09/08/18 History 7.5-325 mg TAB] 1 tab Hydrocodone Bitartrate [[place]ysingla 20 mg PO DAILY 09/09/18 09/09/18 09/08/18 History ER TAB] 1 tab Omeg3/Epa/Dha/Fish Oil/Flax/E 1 cap PO DAILY 09/09/18 09/09/18 09/08/18 History [Thera Tears Nutrition Capsule] 1 cap Active Meds: Active Medications Acetaminophen (Tylenol) 650 mg PO Q4H PRN PRN Reason: Pain MILD(1-3)/Fever >100.5/[place] Last Admin: 09/13/18 04:40 Dose: 650 mg Documented by: Acetaminophen/Hydrocodone Bitart ([place] 7.5/325) 1 each PO BID [facility] Last Admin: 09/12/18 22:04 Dose: 1 each Documented by: Ascorbic Acid (Vitamin C) 500 mg PO DAILY [facility] Last Admin: 09/12/18 11:05 Dose: 500 mg Documented by: Clopidogrel Bisulfate (Plavix) 75 mg PO DAILY [facility] Last Admin: 09/12/18 11:04 Dose: 75 mg Documented by: Dextrose (D50w (25gm) Syringe) 0 ml IV PRN PRN PRN Reason: Hypoglycemia Docusate Sodium (Colace) 100 mg PO BID [facility] Last Admin: 09/12/18 22:04 Dose: 100 mg Documented by: Famotidine (Pepcid) 20 mg PO QDAY [facility] Last Admin: 09/12/18 11:04 Dose: 20 mg Documented by: Furosemide (Lasix) 40 mg PO QDAY [facility] Last Admin: 09/12/18 11:03 Dose: 40 mg Documented by: Gabapentin (Neurontin) 300 mg PO Q8HR [facility] Last Admin: 09/13/18 06:52 Dose: 300 mg Documented by: Hydromorphone HCl (Dilaudid) 1 mg IV Q2H PRN PRN Reason: Pain, Moderate (4-6) Last Admin: 09/10/18 02:19 Dose: 1 mg Documented by: Sodium Chloride (Nacl 0.9% 500 Ml) 500 mls @ 50 mls/hr IV DIRECT [facility] Last Admin: 09/09/18 15:10 Dose: 50 mls/hr Documented by: Potassium Chloride/Dextrose/Sod Cl (D5w/0.45% Nacl/Kcl 20 Meq) 20 meq in 1,000 mls @ 125 mls/hr IV DIRECT [facility]STINA Insulin Human Regular 100 (units/ Sodium Chloride) 100 mls @ 1 mls/hr IV TITR C[facility]STINA; Protocol Lisinopril (Zestril) 5 mg PO QDAY [facility] Last Admin: 09/12/18 11:05 Dose: 5 mg Documented by: Ondansetron HCl (Zofran) 4 mg IV Q8H PRN PRN Reason: Nausea Pravastatin Sodium (Pravachol) 40 mg PO QHS [facility] Last Admin: 09/12/18 22:04 Dose: 40 mg Documented by: Sodium Chloride (Sodium Chloride Flush Syringe 10 Ml) 10 ml IV BID [facility] Last Admin: 09/12/18 22:05 Dose: 10 ml Documented by: Sodium Chloride (Sodium Chloride Flush Syringe 10 Ml) 10 ml IV PRN PRN PRN Reason: LINE FLUSH Spironolactone (Aldactone) 25 mg PO QDAY [facility] Last Admin: 09/12/18 11:02 Dose: 25 mg Documented by: Zinc Sulfate (Zinc Sulfate) 220 mg PO BID [facility] Last Admin: 09/13/18 00:02 Dose: Not Given Documented by: Zolpidem Tartrate (Ambien) 5 mg PO QHS PRN PRN Reason: Sleep Last Admin: 09/12/18 22:04 Dose: 5 mg Documented by: Exam - Physical Exam Narrative exam: Gen: chronically disable, WDWN, NAD, Awake, Alert, Orientated HEENT: NCAT, EOMI, PERRL, OP Clear Neck: supple, no adenopathy, no thyromegaly, no JVD CVS/Heart: irregular, normal S1S2, pulses present bilaterally Chest/Lungs: CTA B, Symmetrical chest expansion, good air entry bilaterally GI/Abdomen: soft, NTND, good bowel sounds, no guarding or rebound /Bladder: no suprapubic tenderness, no CVA or paraspinal tenderness Extermity/Skin: left leg pulses abnormal MSK: moving all ext Neuro: CN 2-12 grossly intact, no new focal deficits Psych: calm - Constitutional Vitals: Temp Pulse Resp BP Pulse Ox 97.3 F L 58 L 16 128/43 95 09/13/18 09:00 09/13/18 08:00 09/13/18 08:00 09/13/18 05:45 09/13/18 08:00 Results - Labs CBC & Chem 7: 09/10/18 04:55 09/13/18 07:17 Labs: Abnormal lab results 09/12/18 09/13/18 09/13/18 Range/Units 23:14 01: 07:17 BUN 21 H (9-20) mg/dL Glucose 110 H 107 H 115 H (75-100) mg/dL Assessment and Plan Patient is a 88 yo man with a history of PVD s/p multiple angioplasties, hypertension, CAD s/p CABG 2003, s/p ICD placement 2014, bioprosthetic AVR 2010, OA and dyslipidemia who presented to Outpatient surgery center with Left foot numbness, burning and pain on 09/09/2018 and underwent Left leg angioplasty. He was admitted by Vascular surgery on the 09/09/18. Hospitalist was notified today of the Consult for medical management of hypertension. Patient is on his way to another surgery per Vascular Surgery. -Hypertension: low salt/Cardiac diet, continue lisinopril -H/o AVR, biosprothetic/Afib: recommend consulting Cardiology -Left ischemic leg: Vascular is managing -Dyslipidemia: statin
--- NOTE | 2018-09-13 11:44 | Event Note ---
Date: 09/13/18 arterial Us done in am showed slightly increased in size PSA Will plan for thrombin injection. Risks and benefits discussed.
[2018-09-13] MEDS ORDERED: HEPARIN/NS 5000 UNIT/500ML(CATH LAB) 0 ML IR ONE (11:45)
[2018-09-13] MEDS ORDERED: NACL 0.9% 500 ML IR ONE (11:45)
[2018-09-13] MEDS ORDERED: NACL 0.9% 250ML 250 ML ONE (11:45)
[2018-09-13] MEDS ORDERED: XYLOCAINE 2% INFILTRATI ONE (11:45)
[2018-09-13] MEDS ORDERED: SUBLIMAZE ONE (11:47)
[2018-09-13] MEDS ORDERED: THROMBIN (BOVINE) TP ONE (11:47)
[2018-09-13] MEDS ORDERED: VERSED ONE (11:47)
[2018-09-13] MEDS ORDERED: WATER FOR INJ (PF) ONE (11:48)
[2018-09-13] MEDS: NACL 0.9% 250ML 250 ML ONE ×3 (12:15→12:33)
--- NOTE | 2018-09-13 12:40 | Post Operative Note ---
Pre-op diagnosis: right femoral PSA Post-op diagnosis: same Findings: at the completion PSA with no flow, femoral vessels remain patent Procedure: thrombin injection to right femoral PSA Anesthesia: local Surgeon: JIM BAUTISTA Estimated blood loss: none Pathology: none Condition: stable Disposition: PACU
[2018-09-13] MEDS: COLACE PO SCH ×2 (17:06→21:20)
[2018-09-13] MEDS: SODIUM CHLORIDE FLUSH SYRINGE 10 ML IV SCH ×2 (17:07→21:22)
[2018-09-13] MEDS: VITAMIN C PO SCH (17:07)
[2018-09-13] MEDS: LASIX PO SCH (17:12)
[2018-09-13] MEDS: ALDACTONE PO SCH (17:12)
[2018-09-13] MEDS: PLAVIX PO SCH (17:12)
[2018-09-13] MEDS: PEPCID PO SCH (17:12)
[2018-09-13] MEDS: ZESTRIL PO SCH (17:13)
[2018-09-13] MEDS: NORCO 7.5/325 PO SCH ×2 (17:13→21:21)
[2018-09-13] MEDS: PRAVACHOL PO SCH (21:20)
[2018-09-13] MEDS ORDERED: BENADRYL PO ONE (23:14)
[2018-09-14] MEDS: NEURONTIN PO SCH ×2 (06:44→13:29)
[2018-09-14] MEDS: ALDACTONE PO SCH (09:24)
[2018-09-14] MEDS: NORCO 7.5/325 PO SCH (09:24)
[2018-09-14] MEDS: ZINC SULFATE PO SCH (09:24)
[2018-09-14] MEDS: COLACE PO SCH (09:25)
[2018-09-14] MEDS: LASIX PO SCH (09:25)
[2018-09-14] MEDS: PEPCID PO SCH (09:26)
[2018-09-14] MEDS: PLAVIX PO SCH (09:26)
[2018-09-14] MEDS: VITAMIN C PO SCH (09:27)
[2018-09-14] MEDS: SODIUM CHLORIDE FLUSH SYRINGE 10 ML IV SCH (09:27)
[2018-09-14] MEDS: ZESTRIL PO SCH (09:27)
[2018-09-14 09:28] VITALS: BP 124/43
--- NOTE | 2018-09-14 11:32 | Progress Note ---
Assessment and Plan Assessment and plan: Patient is a 88 yo man with a history of PVD s/p multiple angioplasties, hypertension, CAD s/p CABG 2003, s/p ICD placement 2014, bioprosthetic AVR 2010, OA and dyslipidemia who presented to [facility] Outpatient surgery center with Left foot numbness, burning and pain on 09/09/2018 and underwent Left leg angioplasty. He was directly admitted to the Hospital by Vascular surgery on the 09/09/18. Hospitalist was notified today of the Consult for medical management of hypertension. -Hypertension, very good control: low salt/Cardiac diet, continue lisinopril, will sign off, call if need -H/o AVR, biosprothetic/Afib: recommend consulting Cardiology -Ischemic Left leg: Vascular is managing -Dyslipidemia: statin History Interval history: Patient was seen and examined. Follow-up on current diagnosis. Overnight uneventful. Patient denies any chest pain, shortness breath, nausea/vomiting or severe headaches. Imaging, nursing note, chart, labs and old chart reviewed. Discussed with patient. Hospitalist Physical - Physical exam Narrative exam: Gen: chronically disable, WDWN, NAD, Awake, Alert, Orientated HEENT: NCAT, EOMI, PERRL, OP Clear Neck: supple, no adenopathy, no thyromegaly, no JVD CVS/Heart: irregular, normal S1S2, pulses present bilaterally Chest/Lungs: CTA B, Symmetrical chest expansion, good air entry bilaterally GI/Abdomen: soft, NTND, good bowel sounds, no guarding or rebound /Bladder: no suprapubic tenderness, no CVA or paraspinal tenderness Extermity/Skin: left leg pulses abnormal MSK: moving all ext Neuro: CN 2-12 grossly intact, no new focal deficits Psych: calm - Constitutional Vitals: Temp Pulse Resp BP Pulse Ox 98.4 F 65 18 124/43 95 09/14/18 08:00 09/14/18 09:27 09/14/18 04:00 09/14/18 09:27 09/14/18 04:00 General appearance: Present: no acute distress Results - Labs CBC & Chem 7: 09/10/18 04:55 09/13/18 07:17 Labs: Laboratory Last Values WBC 8.8 K/mm3 (4.5-11.0) 09/10/18 04:55 RBC 3.53 M/mm3 (3.65-5.03) L 09/10/18 04:55 Hgb 11.2 gm/dl (11.8-15.2) L 09/10/18 04:55 Hct 33.0 % (35.5-45.6) L 09/10/18 04:55 MCV 94 fl (84-94) 09/10/18 04:55 MCH 32 pg (28-32) 09/10/18 04:55 MCHC 34 % (32-34) 09/10/18 04:55 RDW 13.3 % (13.2-15.2) 09/10/18 04:55 Plt Count 125 K/mm3 (140-440) L 09/10/18 04:55 Lymph % (Auto) 18.7 % (13.4-35.0) 09/10/18 04:55 [place] % (Auto) 10.6 % (0.0-7.3) H 09/10/18 04:55 Eos % (Auto) 1.3 % (0.0-4.3) 09/10/18 04:55 Baso % (Auto) 0.3 % (0.0-1.8) 09/10/18 04:55 Lymph # 1.6 K/mm3 (1.2-5.4) 09/10/18 04:55 [place] # 0.9 K/mm3 (0.0-0.8) H 09/10/18 04:55 Eos # 0.1 K/mm3 (0.0-0.4) 09/10/18 04:55 Baso # 0.0 K/mm3 (0.0-0.1) 09/10/18 04:55 Seg Neutrophils % 69.1 % (40.0-70.0) 09/10/18 04:55 Seg Neutrophils # 6.1 K/mm3 (1.8-7.7) 09/10/18 04:55 PT 13.4 Sec. (12.2-14.9) 09/09/18 09:38 INR 0.96 (0.87-1.13) 09/09/18 09:38 APTT 33.9 Sec. (24.2-36.6) 09/09/18 09:38 Sodium 137 mmol/L (137-145) 09/13/18 07:17 Potassium 3.8 mmol/L (3.6-5.0) 09/13/18 07:17 Chloride 102.6 mmol/L (98-107) 09/13/18 07:17 Carbon Dioxide 23 mmol/L (22-30) 09/13/18 07:17 Anion Gap 15 mmol/L 09/13/18 07:17 BUN 19 mg/dL (9-20) 09/13/18 07:17 Creatinine 1.1 mg/dL (0.8-1.5) 09/13/18 07:17 Estimated GFR > 60 ml/min 09/13/18 07:17 BUN/Creatinine Ratio 17 % 09/13/18 07:17 Glucose 115 mg/dL (75-100) H 09/13/18 07:17 POC Glucose 129 (70-105) H 09/10/18 12:22 Calcium 8.5 mg/dL (8.4-10.2) 09/13/18 07:17 Phosphorus 3.40 mg/dL (2.5-4.5) 09/12/18 23:14 Magnesium 2.20 mg/dL (1.7-2.3) 09/12/18 23:14 Nutrition/Malnutrition Assess - Dietary Evaluation Nutrition/Malnutrition Findings: Nutrition Notes Start: 09/13/18 16:27 Freq: Status: Active Protocol: Document 09/13/18 16:27 RM (Rec: 09/13/18 16:37 RM [id number]) Nutrition Notes Need for Assessment generated from: MD Order Initial or Follow up Assessment Current Diagnosis Coronary Artery Disease Hypertension Other Pertinent Diagnosis R groin surgical wound, Spinal stenosis Current Diet Cardiac/Consistent CHO Labs/Tests POC 110, 129, 110, 107, 115 Pertinent Medications Lasix Height 5 ft 8 in Weight 81.647 kg [place] Body Weight (kg) 70.00 BMI 27.3 Subjective/Other Information Consulted for nutrition recommendations and DM diet education. Pt not in room at time of visit. No Dx of DM in record. Recorded PO intakes 50% X 2 meals. Percent of energy/protein needs met: 56%/43% Burn Absent Trauma Absent #1 Nutrition Diagnosis Inadequate oral intake Etiology illness As Evidenced by Signs and Symptoms recorded PO intake 50% X 2 meals Is patient on ventilator? No Is Patient Ambulatory and/or Out of Bed No REE-([place]-. Dante-confined to bed) [phone] Calculation Used for Recommendations [facility] Additional Notes Protein Needs: 98-122g(1.2-1. 5g/kg) Fluid Needs: 1 ml/kcal Nutrition Intervention Change Diet Order: Continue current Add Supplement/Snack (indicate name/kcal Glucerna 1 daily /protein ) Provides kCal: 220 Provides Protein (gm) 10 Goal #1 Meet at least 75% of calorie and protein needs via PO and ONS intakes Anticipated Discharge Needs: Cardiac/Consistent CHO Follow-Up By: 09/15/18 Additional Comments Follow for PO and ONS intakes, possible DM diet education
--- NOTE | 2018-09-14 13:19 | Consultation ---
History of Present Illness Consult date: 09/14/18 Requesting physician: JOSHUA RING Consult reason: known to you History of present illness: The pt is an 88 YO male with a past medical history significant for CAD s/p CABG, s/p bioprosthetic AVR, chronic systolic heart failure, AICD in situ, paroxysmal atrial fibrillation, anticoagulated with Eliquis, PVD, severe pulmonary HTN, chronic thrombocytopenia. He is followed in our office by Dr. Lowry. He has a history of PVD s/p multiple peripheral interventions and was admitted for another intervention. He subsequently underwent the procedure and has no current cardiac complaints. He is to be discharged today per vascular team. LHC done 01/2015 showed patent grafts (HOANG-LAD, SVG-PLOM, SVG-dRCA). Echo done 07/2017 showed EF 30-35%, mod LVH, systolic and diastolic septal flattening c/w RV volume and pressure overload, abnormal diastolic function, RV severely dilated, RV systolic function mildly reduced, severe pulm HTN with RVSP 75mmHg, mild to mod TR, RA mod dilated, LA severely dilated. Past History Past Medical History: other (as per HPI) Past Surgical History: CABG, Other (s/p bioprosthetic AVR) Medications and Allergies Allergies Allergy/AdvReac Type Severity Reaction Status Date / Time No Known Allergies Allergy Verified 09/09/18 09:21 Home Medications Medication Instructions Recorded Confirmed Last Taken Type Ascorbic Acid [Vitamin C with Ara 500 mg PO DAILY 09/28/17 09/09/18 09/08/18 History Hips] 500mg Zinc Sulfate 220 mg PO BID 09/28/17 09/09/18 09/08/18 History 220mg Clopidogrel Bisulfate [Plavix] 75 mg PO DAILY #30 tablet 09/29/17 09/09/18 09/08/18 Rx 75mg Famotidine 40 mg PO DAILY #30 tablet 09/29/17 09/09/18 09/08/18 Rx 40mg Furosemide [Lasix TAB] 40 mg PO QDAY #30 tablet 09/29/17 09/09/18 09/08/18 Rx 40mg Gabapentin [Neurontin] 300 mg PO Q8HR #30 capsule 09/29/17 09/09/18 09/08/18 Rx 300mg Lisinopril [Prinivil] 5 mg PO QDAY #30 tablet 09/29/17 09/09/18 09/09/18 06:30 Rx Simvastatin 20 mg PO HS #30 tablet 09/29/17 09/09/18 09/08/18 Rx 20mg Spironolactone [Aldactone] 25 mg PO QDAY #30 tablet 09/29/17 09/09/18 09/08/18 Rx 25mg Apixaban [Eliquis] 5 mg PO Q12H 09/09/18 09/09/18 09/06/18 History 5mg HYDROcodone/APAP 7.5-325 [[place] 1 tab PO DAILY 09/09/18 09/09/18 09/08/18 History 7.5-325 mg TAB] 1 tab Hydrocodone Bitartrate [[place] 20 mg PO DAILY 09/09/18 09/09/18 09/08/18 History ER TAB] 1 tab Omeg3/Epa/Dha/Fish Oil/Flax/E 1 cap PO DAILY 09/09/18 09/09/18 09/08/18 History [Thera Tears Nutrition Capsule] 1 cap HYDROcodone/APAP 7.5-325 [[place] 1 each PO Q6HR PRN #25 tablet 09/14/18 Unknown Rx 7.5/325] Active Meds: Active Medications Acetaminophen (Tylenol) 650 mg PO Q4H PRN PRN Reason: Pain MILD(1-3)/Fever >100.5/[place] Last Admin: 09/13/18 04:40 Dose: 650 mg Documented by: Acetaminophen/Hydrocodone Bitart ([place] 7.5/325) 1 each PO BID [facility] Last Admin: 09/14/18 09:24 Dose: 1 each Documented by: Ascorbic Acid (Vitamin C) 500 mg PO DAILY [facility] Last Admin: 09/14/18 09:27 Dose: 500 mg Documented by: Clopidogrel Bisulfate (Plavix) 75 mg PO DAILY [facility] Last Admin: 09/14/18 09:26 Dose: 75 mg Documented by: Docusate Sodium (Colace) 100 mg PO BID [facility] Last Admin: 09/14/18 09:25 Dose: 100 mg Documented by: Famotidine (Pepcid) 20 mg PO QDAY [facility] Last Admin: 09/14/18 09:26 Dose: 20 mg Documented by: Furosemide (Lasix) 40 mg PO QDAY [facility] Last Admin: 09/14/18 09:25 Dose: 40 mg Documented by: Gabapentin (Neurontin) 300 mg PO Q8HR [facility] Last Admin: 09/14/18 06:44 Dose: 300 mg Documented by: Hydromorphone HCl (Dilaudid) 1 mg IV Q2H PRN PRN Reason: Pain, Moderate (4-6) Last Admin: 09/10/18 02:19 Dose: 1 mg Documented by: Sodium Chloride (Nacl 0.9% 500 Ml) 500 mls @ 50 mls/hr IV DIRECT [facility] Last Admin: 09/09/18 15:10 Dose: 50 mls/hr Documented by: Lisinopril (Zestril) 5 mg PO QDAY [facility] Last Admin: 09/14/18 09:27 Dose: 5 mg Documented by: Ondansetron HCl (Zofran) 4 mg IV Q8H PRN PRN Reason: Nausea Pravastatin Sodium (Pravachol) 40 mg PO QHS [facility] Last Admin: 09/13/18 21:20 Dose: 40 mg Documented by: Sodium Chloride (Sodium Chloride Flush Syringe 10 Ml) 10 ml IV BID [facility] Last Admin: 09/14/18 09:27 Dose: 10 ml Documented by: Sodium Chloride (Sodium Chloride Flush Syringe 10 Ml) 10 ml IV PRN PRN PRN Reason: LINE FLUSH Spironolactone (Aldactone) 25 mg PO QDAY [facility] Last Admin: 09/14/18 09:24 Dose: 25 mg Documented by: Zinc Sulfate (Zinc Sulfate) 220 mg PO BID [facility] Last Admin: 09/14/18 09:24 Dose: 220 mg Documented by: Zolpidem Tartrate (Ambien) 5 mg PO QHS PRN PRN Reason: Sleep Last Admin: 09/12/18 22:04 Dose: 5 mg Documented by: Review of Systems All systems: negative (no current complaints) Physical Examination Vital Signs Temp Pulse Resp BP Pulse Ox 97.6 F 72 18 176/61 96 09/09/18 09:44 09/09/18 09:44 09/09/18 09:44 09/09/18 09:44 09/09/18 09:44 General appearance: no acute distress HEENT: Positive: PERRL, Normocephaly, Mucus Membranes Moist Neck: Positive: neck supple, trachea midline Cardiac: Positive: Reg Rate and Rhythm, S1/S2 Lungs: Positive: Decreased Breath Sounds Neuro: Positive: Grossly Intact Abdomen: Negative: Tender Results 09/10/18 04:55 09/13/18 07:17 EKG interpretations - Telemetry EKG Rhythm: Sinus Rhythm Assessment and Plan Assessment: PVD s/p vascular intervention CAD s/p CABG s/p bioprosthetic AVR Chronic systolic heart failure - no current clinical evidence of acutely decompensated HF ICMP AICD in situ Minimally elevated troponins Paroxysmal atrial fibrillation - anticoagulated with coumadin Severe pulmonary HTN Anemia Chronic thrombocytopenia Plan: Currently stable cardiac status. Cont home cardiac regimen. Pt's Eliquis is currently being held per vascular recs - resume per vascular team, cont Plavix. Pt may discharge home from cardiology standpoint. Recommend follow up in our office with Dr. Lowry within 1-2 weeks of hospital discharge ([phone]). The patient has been seen in conjunction with Dr. An who agrees with the assessment and plan of care.
--- NOTE | 2018-09-14 13:19 | Discharge Summary ---
Providers - Providers Date of Admission: 09/09/18 17:50 Date of discharge: 09/14/18 Attending physician: TYLER GOMES 09/09/18 18:00 Consult to Physician [CONS] Routine Comment: Consulting Provider: STEPHEN ARSHAD Physician Instructions: Reason For Exam: medical management 09/10/18 08:00 Consult to Wound/ET Nurse [CONS] Routine Reason For Exam: wound eval right groin 09/13/18 11:39 Consult to Physician [CONS] Routine Comment: Consulting Provider: DARIELA ISLAS Physician Instructions: Reason For Exam: AVR, cad, icm, ?afib, icd check [facility] Reason for admission: Critical limb ischemia of the left lower extremity with non-resolving rest Condition: Stable Procedures: Operative Report Operative Report: EXAM: 1. Ultrasound guided access of the right common femoral artery 2. Angiography of the right lower extremity 3. Selection of the abdominal aorta with angiography 4. Selection of the external iliac artery, superficial femoral artery, and popliteal artery with angiography 5. Fluoroscopic guided placement of a 5 mm spider EPD in the left popliteal artery 5. Atherectomy of the left superficial femoral artery and popliteal artery with a [place] LX 6. Angioplasty of the left popliteal artery with a 4 mm x 150 mm iNPACT DCB 7. Angioplasty of the left superficial femoral artery with a 5 mm x 150 mm iNPACT DCB (x2), 5 mm x 120 mm iNPACT DCB 8. Capture of the left embolic protection device 9. Attempted closure of the right common femoral artery arteriotomy with a 6 Fr proglide 10. Ultrasound guided access of the left radial artery 11. Third order selection of the right common femoral artery with angiography 12. Balloon tamponade of the right common femoral artery with a 7 mm angioplasty balloon DATE: 09/09/18 MORTGAGE SPECIALIST: TYLER GOMES MD INDICATION: Critical limb ischemia of the left lower extremity with non- resolving rest pain MEDICATIONS: Please see nursing report for full details. CONTRAST: 75 mL nonionic contrast PROCEDURE: Risks, benefits, and alternatives were discussed with the family and the patient's son; written informed consent was obtained. The groins were prepped and draped in a sterile fashion. Ultrasound was used to evaluate the right common femoral artery which was severely calcified along its mid and upper portion. The lower portion of the vessel was less calcified. Under direct ultrasound guidance, the lower portion of the right common femoral artery was accessed with a 21-gauge bike or puncture needle. 0.018 inch wire was passed into the aorta. Needle was exchanged for transitional dilator. Wire was exchanged for 0.035 inch wire. Transitional dilator was exchanged for a 5 [place] sheath. Digital subtraction angiography was performed demonstrating an appropriate puncture, slightly above the bifurcation and below the inferior epigastric artery. The right external iliac artery, common femoral artery, proximal profunda femoral artery, and proximal superficial femoral artery were patent. The abdominal aorta was selected and digital subtraction angiography was performed him ensuring patency of the bilateral common iliac arteries, and internal iliac arteries, and external iliac arteries. The left external iliac artery was selected and digital subtraction angiography was performed demonstrating patency of the left common femoral artery, and profunda femoral artery. There is sluggish flow in the superficial femoral artery. The superficial femoral artery had ostial 50% narrowing, and proximal 70% narrowing. The left superficial femoral artery was selected and digital subtraction angiography was performed demonstrating sluggish flow in the mid and distal left superficial femoral artery stent with severe multifocal 99% narrowings with stent. The above the knee popliteal artery had a 99% narrowing. The mid and distal popliteal artery were patent. Below the knee, all of the tibials were occluded at a portion of the vessel. There is extensive collaterals. The best special was the tibioperoneal trunk and the peroneal artery which was patent until the proximal peroneal artery at which point it resulted in many collaterals with distal reconstitution. The patient was heparinized. 5 mm spider embolic protection device was deployed and the left below the knee popliteal artery. Atherectomy was performed of the left superficial femoral artery throughout its course in the popliteal artery. Atherectomy device had to be clean multiple times. After achieving less than 30% residual narrowing, I decided to treat the area with drug-coated angioplasty. 4 mm angioplasty balloon was used to treat the popliteal artery, and sequential 5 mm drug-coated angioplasty balloons were used to treat the superficial femoral artery. There was less than 10% residual narrowing. At this point the embolic protection device was retrieved. I decided to not proceed with further intervention of the tibials at this time. The patient will likely require further intervention, but given the case time, I decided that I had accomplished enough revascularization at this time. Digital subtraction angiography was performed and ensuring unchanged runoff with less than 10% residual narrowing of the left superficial femoral artery and popliteal artery. All wires, catheters, and sheaths were retracted to the right external iliac artery. Sheath was then exchanged for 6 Ukrainian Pro-glide which was used to attempt closely arteriotomy but was unsuccessful. Pressure was then held for 40 minutes but the bleeding continued. I decided the patient would require additional intervention to prevent further bleeding. Left wrist was prepped and draped in a sterile fashion. Ultrasound was used to evaluate the left radial artery which was patent. Under direct ultrasound guidance, the left radial artery was accessed with a 21-gauge micropuncture needle. 0.018 inch wire was passed into the left radial artery. Needle was exchanged for a 4/5 glidesheath slender. Radial cocktail was administered without heparin. The descending thoracic aorta was then selected and the infrarenal abdominal aorta was selected. The right common femoral artery was then selected. Digital subtraction angiography was performed demonstrating no hemodynamically significant narrowing of the right common femoral artery, proximal superficial femoral artery, or profundofemoral artery. There is a suggestion of a irregularity of the distal c ommon femoral artery. 7 mm x 40 mm angioplasty balloon was then used to perform balloon tamponade for 7 minutes at this location. All bleeding had ceased at this point. The balloon was deflated and digital subtraction angiography was performed demonstrating a small pseudoaneurysm at the distal right common femoral artery. I then use a 7 mm x 40 mm angioplasty balloon to perform balloon tamponade again for 10 minutes. Digital subtraction angiography was performed him demonstrating no extravasation or pseudoaneurysm at this time. There is no further bleeding. Pseudoaneurysm was no longer visualized. All wires, catheters, and sheaths were removed and the site was closed with a pressure dressing. Pressure dressing applied to the right groin. After transport from the medical laboratory assistant table onto the stretcher, there is some bleeding noted from the right groin. Originally, surgical consent for possible operative repair of the artery was obtained, but after evaluation, as it was determined this residual bleeding was likely from a hematoma. Femstop was applied for 30 minutes. Afterwards, no further bleeding encountered. Patient was subsequently admitted to the hospital in the IMCU This was discussed with the family throughout the process. FINDINGS: Please see procedure note above. IMPRESSION: 1. Successful revascularization of the left lower extremity femoral popliteal artery complicated by right femoral artery groin bleeding when pressure was not applied requiring balloon tamponade. Patient Name: DEBBIE REYNOLDS Date of : 1930 Patient Status: Inpatient Attending Provider: TYLER GOMES Date: 09/13/18 12:38 Initialization Date: 09/13/18 12:38 Pre-op diagnosis: right femoral PSA Post-op diagnosis: same Findings: at the completion PSA with no flow, femoral vessels remain patent Procedure: thrombin injection to right femoral PSA Anesthesia: local Surgeon: JIM BAUTISTA Estimated blood loss: none Pathology: none Condition: stable Disposition: PACU Hospital course: This pt was admitted in preparation for the above stated initial procedure. The pt developed a small pseudoaneurysm at the puncture site. He was kept post operatively over the weekend. The area was reduplexed, and had enlarged slightly. It was therefore injected with thrombin and the pseudoaneurysm was sealed off. The pt tolerated the procedures and appears stable for d/c home. D/c instructions were given to the pt at the bedside. The pt should f/u in our office in 1 week. He should call if for any post-operative concerns. Disposition: TO HOME OR SELFCARE Core Measure Documentation - Palliative Care Palliative Care/ Comfort Measures: Not Applicable - Core Measures Any of the following diagnoses?: none Exam - Constitutional Vitals: Temp Pulse Resp BP Pulse Ox 98.4 F 61 18 124/43 95 09/14/18 08:00 09/14/18 10:00 09/14/18 04:00 09/14/18 09:27 09/14/18 04:00 General appearance: Present: no acute distress - EENT Eyes: Present: EOM intact ENT: hearing intact - Neck Neck: Present: supple - Respiratory Respiratory effort: normal - Extremities Extremities: no ischemia, abnormal (right groin looks good, heel wounds on the left foot bandaged, audible PT bilaterally unable to doppler DP.) - Psychiatric Psychiatric: appropriate mood/affect, intact judgment & insight, cooperative Plan Activity: advance as tolerated Weight Bearing Status: Weight Bear as Tolerated Diet: low salt, low carbohydrate Wound: keep clean and dry Follow up with: TERI SLADE MD [Staff Physician] - 7 Days MIRTHA PHILIPPE MD [Primary Care Provider] - 7 Days Prescriptions: HYDROcodone/APAP 7.5-325 [[place] 7.5/325] 1 each PO Q6HR PRN #25 tablet PRN Reason: Pain
--- NOTE | 2018-09-14 13:55 | Operative Report ---
Operative Report Operative Report: Operative note: Date: 09/14/2018 Preoperative diagnosis: Right femoral pseudoaneurysm Postoperative diagnosis: Same. Operation: Thrombin injection of right femoral pseudoaneurysm Surgeon: Ronit Delarosa. Asst.: none Anesthesia: local with moderate sedation EBL: None Findings: Resolution of pseudoaneurysm, patent femoral vasculature Indications: Enlarging right femoral pseudoaneurysm, status post left leg revascularization with right femoral access. Risks, benefits and alternatives of procedure were discussed with patient and family in detail. Patient agreed and signed informed consent. Operative details: Patient was brought to the [facility] and placed in supine position. His right femoral area was prepped and draped in sterile fashion. Timeout was performed. Under continuous ultrasound guidance about 1 mL of thrombin was injected into pseudoaneurysm until flow stopped. Ultrasound was performed by business objects report developer at the completion of procedure the confirmed complete resolution of pseudoaneurysm and preservation of flow in femoral artery. Patient tolerated procedure well and was transferred to PACU in stable condition.
--- NOTE | 2018-09-14 20:52 | Vascular Lab Report ---
PROCEDURE: VL VESSEL ID/PSEUDO INJECT TECHNIQUE: Real-time sonography in multiple planes of the soft tissues of the right groin was perfor med with image documentation. HISTORY: Post thrombin injection COMPARISONS: None . FINDINGS: Extremity: Right lower extremity . Edema or fluid collection: None . Mass: None . Foreign body: None . Pseudoaneurysms is thrombosed. There is no residual blood flow. The right common femoral artery and c ommon femoral vein are patent. IMPRESSION: Pseudoaneurysms is thrombosed. There is no residual blood flow. The right common femoral artery and common femoral vein are patent. . This document is electronically signed by Isaías Henry MD., September 14 2018 08:50:10 PM ET
== END 2018-09-14 14:20 | disposition home health service (06) | DRG 271 ==
LOC: CATHLABREC 08:58 → IMCU 17:50
PROVIDERS: ADMIT Radiology Diagnostic Radiology; ATTEND Radiology Diagnostic Radiology
PROC: 04CL3ZZ Extirpation of Matter from Left Femoral Artery, Percutaneous Approach (ICD-10-PCS; principal; 2018-09-09)
PROC: 04CN3ZZ Extirpation of Matter from Left Popliteal Artery, Percutaneous Approach (ICD-10-PCS; 2018-09-09)
PROC: 047L3Z1 Dilation of Left Femoral Artery using Drug-Coated Balloon, Percutaneous Approach (ICD-10-PCS; 2018-09-09)
PROC: 047N3Z1 Dilation of Left Popliteal Artery using Drug-Coated Balloon, Percutaneous Approach (ICD-10-PCS; 2018-09-09)
PROC: B44LZZZ Ultrasonography of Femoral Artery (ICD-10-PCS; 2018-09-09)
PROC: 047K3ZZ Dilation of Right Femoral Artery, Percutaneous Approach (ICD-10-PCS; 2018-09-09)
PROC: B41D1ZZ Fluoroscopy of Aorta and Bilateral Lower Extremity Arteries using Low Osmolar Contrast (ICD-10-PCS; 2018-09-09)
PROC: B34JZZZ Ultrasonography of Left Upper Extremity Arteries (ICD-10-PCS; 2018-09-09)
PROC: 3E053GC Introduction of Other Therapeutic Substance into Peripheral Artery, Percutaneous Approach (ICD-10-PCS; 2018-09-14)
DX: I70.248 Atherosclerosis of native arteries of left leg with ulceration of other part of lower leg (principal); I87.313 Chronic venous hypertension (idiopathic) with ulcer of bilateral lower extremity; I50.22 Chronic systolic (congestive) heart failure; I99.8 Other disorder of circulatory system; L97.829 Non-pressure chronic ulcer of other part of left lower leg with unspecified severity; I72.4 Aneurysm of artery of lower extremity; I70.244 Atherosclerosis of native arteries of left leg with ulceration of heel and midfoot; I87.2 Venous insufficiency (chronic) (peripheral); F17.200 Nicotine dependence, unspecified, uncomplicated; I25.10 Atherosclerotic heart disease of native coronary artery without angina pectoris; M48.00 Spinal stenosis, site unspecified; I11.0 Hypertensive heart disease with heart failure; G62.9 Polyneuropathy, unspecified; I70.242 Atherosclerosis of native arteries of left leg with ulceration of calf; I70.243 Atherosclerosis of native arteries of left leg with ulceration of ankle; M19.90 Unspecified osteoarthritis, unspecified site; D69.6 Thrombocytopenia, unspecified; E78.5 Hyperlipidemia, unspecified; I48.0 Paroxysmal atrial fibrillation; I25.5 Ischemic cardiomyopathy; D64.9 Anemia, unspecified; I27.20 Pulmonary hypertension, unspecified; Z95.1 Presence of aortocoronary bypass graft; Z95.810 Presence of automatic (implantable) cardiac defibrillator; Z95.2 Presence of prosthetic heart valve; Z90.49 Acquired absence of other specified parts of digestive tract; Z82.49 Family history of ischemic heart disease and other diseases of the circulatory system; Z79.899 Other long term (current) drug therapy; I25.2 Old myocardial infarction; Z79.01 Long term (current) use of anticoagulants
CPT/HCPCS: 36002; 36415; 37224; 37225; 75625; 75710; 76937; 76942; 80048; 82962; 83735; 84100; 85025; 85610; 85730; G0378; A9270-GY; C1714; C1725; C1760; C1769; C1884; C1887; C1894; C2623; J0690; J1170; J1644; J2250; J3010; J7040; J7050; Q9967